=== PATIENT | male | born 1975 | race Caucasian/White ===

== ENCOUNTER → 2020-09-27 09:30 | Outpatient (BNVA) | payer MEDICARE, MEDICAID, SELFPAY | PROVIDERS: PCP Internal Medicine; Referring Provider Internal Medicine; Visit Provider Internal Medicine Endocrinology, Diabetes & Metabolism | DX: Z13.89 Encounter for screening for other disorder (principal) | CPT/HCPCS: Q3014 ==

== ENCOUNTER 2020-09-28 07:03 | Outpatient (REF) | payer MEDICARE, MEDICAID, SELFPAY ==
[2020-09-28 07:54] LABS: Estimated Average Glucose 197 mg/dL; Hemoglobin A1c % 8.5 %
[2020-09-28 07:56] LABS: Alanine Aminotransferase 33 U/L (0-40); Albumin Level 4.3 g/dL (3.5-5.0); Alkaline Phosphatase 74 U/L (39-117); Anion Gap 14 (12-20); Aspartate Amino Transferase 29 U/L (5-37); Bilirubin Total 0.9 mg/dL (0.0-1.0); Blood Urea Nitrogen 21 mg/dL (9-16); Calcium 8.9 mg/dL (8.4-10.2); Carbon Dioxide 30 mmol/L (22-29); Chloride 100 mmol/L (96-108); Cholesterol 177 mg/dL; Estimated Glomerular Filt Rate > 60; Glucose Fasting 148 mg/dL (60-99); HDL Cholesterol 49 mg/dL; LDL Cholesterol Calculated 105 mg/dl; Potassium 4.5 mmol/l (3.3-5.1); Sodium 139 mmol/L (135-145); Total Protein 7.1 g/dL (6.5-8.0); Triglycerides 115 mg/dL
[2020-09-28 08:17] LABS: Creatinine Urine 29.46 mg/dL; Free T4 (Free Thyroxine) 1.13 ng/dL (0.71-1.85); Microalbumin Urine < 5.0 mg/L; Thyroid Stimulating Hormone 2.16 uIU/mL (0.32-4.0); Vitamin D 25-OH Total 24.1 ng/mL (>30)
[2020-09-28 08:20] LABS: Vitamin B12 385 pg/mL (200-900)
[2020-09-29 10:17] LABS: LDL Cholesterol Direct 112 mg/dL (<100)
== END 2020-09-28 07:04 | disposition home or self-care (01) ==
LOC: HO.LAB 07:03
PROVIDERS: Visit Provider Internal Medicine Endocrinology, Diabetes & Metabolism
DX: E11.65 Type 2 diabetes mellitus with hyperglycemia (principal)
CPT/HCPCS: 36415; 80053; 80061; 82043; 82306; 82607; 83036; 83721; 84439; 84443

== ENCOUNTER → 2020-11-04 13:37 | Outpatient (BNVA) | payer MEDICARE, MEDICAID, SELFPAY | PROVIDERS: PCP Internal Medicine; Visit Provider Nurse Practitioner Gerontology | DX: E11.65 Type 2 diabetes mellitus with hyperglycemia (principal); E11.42 Type 2 diabetes mellitus with diabetic polyneuropathy; I10 Essential (primary) hypertension; E78.5 Hyperlipidemia, unspecified; E66.01 Morbid (severe) obesity due to excess calories | CPT/HCPCS: 82947; 99212 ==

== ENCOUNTER → 2020-11-18 13:11 | Outpatient (BNVA) | payer MEDICARE, MEDICAID, SELFPAY | PROVIDERS: PCP Internal Medicine; Visit Provider Dietitian, Registered ==

== ENCOUNTER 2021-01-25 03:25 | Emergency (ER) | payer MEDICARE, MEDICAID, SELFPAY ==
[2021-01-25 03:28] VITALS: BP 152/81; PULSE 68; RESP 18; TEMP 35.9; O2SAT 95; BMI 47.5
--- NOTE | 2021-01-25 03:55 | ED.SKABFB ---
HPI - Skin/Abscess/Foreign Bdy General Chief complaint: Skin/Abscess/Foreign Body Stated complaint: Foreign body in hand Time Seen by Provider: 01/25/21 03:49 Source: patient Mode of arrival: ambulatory Limitations: no limitations History of Present Illness HPI narrative: Patient comes to emergency room complaining of a splinter in his left hand on the palm. Patient tried taking it out at home but was unsuccessful. Patient states that the pain is gradually getting worse. Related Data Home Medications Medication Instructions Recorded Confirmed omeprazole 40 mg capsule,delayed mg PO 09/27/20 11/04/20 release clonazepam 0.5 mg tablet 0.5 mg PO BID tab 11/04/20 11/04/20 gabapentin 300 mg capsule 300 mg PO cap 11/04/20 11/04/20 levothyroxine 137 mcg tablet 137 mcg PO tab 11/04/20 11/04/20 paliperidone 9 mg tablet,extended 9 mg PO tab 11/04/20 11/04/20 release 24 hr terbinafine HCl 250 mg tablet 250 mg PO tab 11/04/20 11/04/20 valsartan 320 mg tablet 320 mg PO tab 11/04/20 11/04/20 Previous Rx's Medication Instructions Recorded dapagliflozin 10 mg-metformin ER 1 tab PO DAILY 30 Days #30 ea 08/19/20 1,000 mg tablet,extended release 24hr sitagliptin 100 mg tablet 100 mg PO DAILY #30 tab 08/20/20 atorvastatin 10 mg tablet 10 mg PO BEDTIME 30 Days #30 tab 10/02/20 insulin glargine 100 unit/mL (3 40 unit SUBCUT QPM 30 Days #12 ml 10/02/20 mL) subcutaneous pen pen needle, diabetic 32 gauge x #100 ea 11/04/20 Allergies Allergy/AdvReac Type Severity Reaction Status Date / Time ibuprofen [From MOTRIN] Allergy Unknown RECTAL Verified 01/25/21 03:28 BLEED topiramate [From TOPAMAX] Allergy Unknown RECTAL Verified 01/25/21 03:28 BLEED DAIRY PRODUCTS Allergy Unknown RECTAL Uncoded 11/04/20 15:59 BLEED AND SWELLING Wellbutrin Allergy Unknown unknown Uncoded 11/04/20 15:59 Review of Systems Review of Systems: Constitutional : No Weight loss, No Fever, No Chills, No Night Sweats, No Fatigue, No Malaise ENT/Mouth : No Hearing loss, No Ear Pain, No Nasal Congestion, No Sinus Pain, No Hoarseness, No sore throat, No Rhinorrhea, No Swallowing Difficulty Eyes: No Eye Pain, No Swelling, No Redness, No Foreign Body, No Discharge, No Vision Changes Cardiovascular : No Chest Pain, No SOB, No Dyspnea on Exertion, No Orthopnea, No Edema, No Palpitations Respiratory : No Cough, No Sputum, No Wheezing, No Smoke Exposure, No Dyspnea Gastrointestinal : No Nausea, No Vomiting, No Diarrhea, No Constipation, No abdominal Pain, No Hematochezia, No Melena Genitourinary : no irregular bleeding, No Dysuria, No Urinary Frequency, No Hematuria, No Urinary Incontinence, No Urgency, No Flank Pain, No Urinary Flow Changes, No Hesitancy Musculoskeletal : No joint pain, No Myalgias, No Joint Swelling Skin : Complaining of a splinter in his phone which hurts Neuro : No Weakness, No Numbness, No Paresthesias, No Loss of Consciousness, No Dizziness, No Headache Psych : No Anxiety/Panic, No Depression, No SI/HI/AH/VH, No Social Issues, Heme/Lymph: No Bruising, No Bleeding,No Lymphadenopathy Endocrine : No Polyuria, No Polydipsia, No Temperature Intolerance PMFSH Past Medical History Medical History Diabetes type 2, uncontrolled Diabetic polyneuropathy associated with type 2 diabetes mellitus Dyslipidemia GERD (gastroesophageal reflux disease) 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 Morbid obesity PTSD (post-traumatic stress disorder) Schizoaffective disorder Vitamin D deficiency Surgical History Hx of hand surgery Hx of wisdom tooth extraction Family History Family History (Updated 09/27/20 @ 10:03 by Roberta Sher LPN) Father Cancer Mother Cancer Diabetes Social History Social History (Updated 11/04/20 @ 13:58 by DEVIN Rivera) Household Members: None Smoking Status: Never smoker Physical Exam Vital Signs: Vital Signs: Last Vital Signs Temp 96.6 F L 01/25/21 03:28 Pulse 68 01/25/21 03:28 Resp 18 01/25/21 03:28 BP 152/81 H 01/25/21 03:28 Pulse Ox 95 01/25/21 03:28 Body Mass Index 47.5 Appearance: Alert. Oriented X3. No acute distress. Eyes: Pupils equal, round and reactive to light. ENT: Pharynx normal. Neck: Normal inspection. Neck supple. No lymph nodes noted. No crepitus CVS: Normal heart rate and rhythm. Pulses normal. Normal S1 and S2 Respiratory: No respiratory distress. Breath sounds normal. No Wheezing. No rales Abdomen: Soft and nontender. No rigidity. No distention. good BS x4 Skin: Skin warm and dry. Palm of left hand, 3 mm x 3 mm erythematous bump, tender to touch, no surrounding cellulitis Extremities: No lower extremity edema. No lower extremity edema. No Lacerations. No Rash Neuro: Oriented X 3. No motor deficit. No sensory deficit. Moving all extermities. No slurred speech. Course Course Course Narrative: The affected area on the palm was numbed with 0.5 mL of 2% lidocaine, at 3 mm incision was made, with tweezers I was able to extract the splinter which was approximately 4 mm long. Patient tolerated well the procedure, patient is able to flex and extend all fingers in his hand. No signs of infection. Discharge Plan Discharge Clinical Impression: Splinter in skin Patient Disposition: Home, Self-Care Instructions: Soft Tissue Foreign Body (ED) Additional Instructions: Please follow-up with your primary care physician tomorrow. If you have any worsening or new symptoms, please return to the emergency room or call 911 Prescriptions: No Action Xigduo XR 10-1,000 mg tablet, IR - ER, biphasic 24hr 1 tab PO DAILY 30 Days Qty: 30 RF: 5 sitagliptin [Januvia] 100 mg tablet 100 mg PO DAILY Qty: 30 RF: 11 insulin glargine 100 unit/mL (3 mL) insulin pen 40 unit subcut QPM 30 Days Qty: 12 RF: 6 atorvastatin 10 mg tablet 10 mg PO BEDTIME 30 Days Qty: 30 RF: 5 (DME) pen needle, diabetic [BD Ultra-Fine Soco Pen Needle] 32 gauge x 5/32 needle See Rx Instructions .ROUTE .MEDSUPPLY Qty: 100 RF: 3 omeprazole 40 mg capsule,delayed release(DR/EC) PO RF: 0 clonazepam 0.5 mg tablet 0.5 mg PO BID RF: 0 gabapentin 300 mg capsule 300 mg PO RF: 0 levothyroxine 137 mcg tablet 137 mcg PO RF: 0 paliperidone 9 mg tablet extended release 24hr 9 mg PO RF: 0 terbinafine HCl 250 mg tablet 250 mg PO RF: 0 valsartan 320 mg tablet 320 mg PO RF: 0
== END 2021-01-25 04:26 | disposition home or self-care (01) ==
LOC: HO.ED 04:20
PROVIDERS: Emergency Provider Emergency Medicine; PCP Internal Medicine
DX: S61.442A Puncture wound with foreign body of left hand, initial encounter (principal); W45.8XXA Other foreign body or object entering through skin, initial encounter; Y93.9 Activity, unspecified; Y92.9 Unspecified place or not applicable; Y99.9 Unspecified external cause status
CPT/HCPCS: 10120; 99283; 99284

== ENCOUNTER → 2021-02-28 13:44 | Outpatient (BNVA) | payer MEDICARE, MEDICAID, SELFPAY | PROVIDERS: PCP Internal Medicine; Visit Provider Internal Medicine Endocrinology, Diabetes & Metabolism | DX: E11.65 Type 2 diabetes mellitus with hyperglycemia (principal); E11.42 Type 2 diabetes mellitus with diabetic polyneuropathy; E55.9 Vitamin D deficiency, unspecified; E66.01 Morbid (severe) obesity due to excess calories; E78.5 Hyperlipidemia, unspecified; I10 Essential (primary) hypertension; Z79.4 Long term (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 | CPT/HCPCS: 82947; 99212 ==

== ENCOUNTER 2021-03-01 07:00 | Outpatient (REF) | payer MEDICARE, MEDICAID, SELFPAY ==
[2021-03-01 08:06] LABS: Creatinine Urine 42.06 mg/dL; Microalbumin Urine < 5.0 mg/L
[2021-03-01 08:45] LABS: Alanine Aminotransferase 34 U/L (0-40); Albumin Level 4.3 g/dL (3.5-5.0); Alkaline Phosphatase 86 U/L (39-117); Anion Gap 14 (12-20); Aspartate Amino Transferase 26 U/L (5-37); Bilirubin Total 0.7 mg/dL (0.0-1.0); Blood Urea Nitrogen 22 mg/dL (9-16); Calcium 9.1 mg/dL (8.4-10.2); Carbon Dioxide 29 mmol/L (22-29); Chloride 101 mmol/L (96-108); Cholesterol 146 mg/dL; Estimated Glomerular Filt Rate > 60; Glucose Fasting 228 mg/dL (60-99); HDL Cholesterol 48 mg/dL; LDL Cholesterol Calculated 63 mg/dl; Potassium 4.6 mmol/L (3.3-5.1); Sodium 139 mmol/L (135-145); Total Protein 6.9 g/dL (6.5-8.0); Triglycerides 176 mg/dL
[2021-03-01 09:03] LABS: Vitamin D 25-OH Total 26.9 ng/mL (>30)
[2021-03-02 07:46] LABS: LDL Cholesterol Direct 66 mg/dL (<100)
== END 2021-03-01 07:01 | disposition home or self-care (01) ==
LOC: HO.LAB 07:00
PROVIDERS: PCP Internal Medicine; Visit Provider Internal Medicine Endocrinology, Diabetes & Metabolism
DX: E11.65 Type 2 diabetes mellitus with hyperglycemia (principal)
CPT/HCPCS: 36415; 80053; 80061; 82043; 82306; 83721; 84681

== ENCOUNTER → 2021-06-03 13:28 | Outpatient (BNVA) | payer MEDICARE, MEDICAID, SELFPAY | PROVIDERS: PCP Internal Medicine; Visit Provider Nurse Practitioner Gerontology | DX: E11.65 Type 2 diabetes mellitus with hyperglycemia (principal); E11.42 Type 2 diabetes mellitus with diabetic polyneuropathy; E55.9 Vitamin D deficiency, unspecified; E66.01 Morbid (severe) obesity due to excess calories; E78.5 Hyperlipidemia, unspecified; I10 Essential (primary) hypertension; Z79.4 Long term (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 | CPT/HCPCS: 82947; 83036; 99212 ==

== ENCOUNTER → 2021-07-08 12:29 | Outpatient (BNVA) | payer MEDICARE, MEDICAID, SELFPAY | PROVIDERS: PCP Internal Medicine; Visit Provider Dietitian, Registered | DX: E11.65 Type 2 diabetes mellitus with hyperglycemia (principal) | CPT/HCPCS: 97803 ==

== ENCOUNTER → 2021-07-14 14:22 | Outpatient (BNVA) | payer MEDICARE, MEDICAID, SELFPAY | PROVIDERS: PCP Internal Medicine; Visit Provider Registered Nurse Diabetes Educator | DX: E11.65 Type 2 diabetes mellitus with hyperglycemia (principal) | CPT/HCPCS: Q3014 ==

== ENCOUNTER → 2021-08-18 13:15 | Outpatient (BNVA) | payer MEDICARE, MEDICAID, SELFPAY | PROVIDERS: PCP Internal Medicine; Visit Provider Registered Nurse Diabetes Educator | DX: E11.65 Type 2 diabetes mellitus with hyperglycemia (principal); Z79.4 Long term (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 | CPT/HCPCS: 99211 ==

== ENCOUNTER → 2021-10-07 13:48 | Outpatient (BNVA) | payer MEDICARE, MEDICAID, SELFPAY | PROVIDERS: PCP Internal Medicine; Visit Provider Nurse Practitioner Gerontology | DX: E11.65 Type 2 diabetes mellitus with hyperglycemia (principal); E11.42 Type 2 diabetes mellitus with diabetic polyneuropathy; E78.5 Hyperlipidemia, unspecified; I10 Essential (primary) hypertension; E55.9 Vitamin D deficiency, unspecified; E66.01 Morbid (severe) obesity due to excess calories; Z79.4 Long term (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; Z68.42 Body mass index [BMI] 45.0-49.9, adult | CPT/HCPCS: 82947; 83036; 99212 ==

== ENCOUNTER → 2021-12-04 13:33 | Outpatient (BNVA) | payer MEDICARE, MEDICAID, SELFPAY | PROVIDERS: PCP Internal Medicine; Visit Provider Nurse Practitioner Gerontology | DX: E11.65 Type 2 diabetes mellitus with hyperglycemia (principal); E11.42 Type 2 diabetes mellitus with diabetic polyneuropathy; E78.5 Hyperlipidemia, unspecified; I10 Essential (primary) hypertension; E66.01 Morbid (severe) obesity due to excess calories; Z68.42 Body mass index [BMI] 45.0-49.9, adult; E55.9 Vitamin D deficiency, unspecified; Z79.4 Long term (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 | CPT/HCPCS: 82947; 99212 ==

== ENCOUNTER → 2021-12-05 12:12 | Outpatient (BNVA) | payer MEDICARE, MEDICAID, SELFPAY | PROVIDERS: PCP Internal Medicine; Visit Provider Registered Nurse Diabetes Educator | DX: E11.65 Type 2 diabetes mellitus with hyperglycemia (principal); E11.42 Type 2 diabetes mellitus with diabetic polyneuropathy; Z79.4 Long term (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 | CPT/HCPCS: 99211 ==

== ENCOUNTER → 2021-12-17 14:20 | Outpatient (BNVA) | payer MEDICARE, MEDICAID, SELFPAY | PROVIDERS: PCP Internal Medicine; Visit Provider Registered Nurse Diabetes Educator | DX: E11.42 Type 2 diabetes mellitus with diabetic polyneuropathy (principal) | CPT/HCPCS: 99211 ==

== ENCOUNTER → 2021-12-30 07:33 | Outpatient (BNVA) | payer MEDICARE, MEDICAID, SELFPAY | PROVIDERS: PCP Internal Medicine; Visit Provider Registered Nurse Diabetes Educator | DX: E11.65 Type 2 diabetes mellitus with hyperglycemia (principal); E11.42 Type 2 diabetes mellitus with diabetic polyneuropathy; Z79.4 Long term (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 | CPT/HCPCS: 99211 ==

== ENCOUNTER → 2022-03-05 13:54 | Outpatient (BNVA) | payer MEDICARE, MEDICAID, SELFPAY | PROVIDERS: PCP Internal Medicine; Visit Provider Nurse Practitioner Gerontology | DX: E11.65 Type 2 diabetes mellitus with hyperglycemia (principal); E11.42 Type 2 diabetes mellitus with diabetic polyneuropathy; E78.5 Hyperlipidemia, unspecified; E66.01 Morbid (severe) obesity due to excess calories; E55.9 Vitamin D deficiency, unspecified; I10 Essential (primary) hypertension; Z79.4 Long term (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; Z68.42 Body mass index [BMI] 45.0-49.9, adult | CPT/HCPCS: 82947; 83036; 99212 ==

== ENCOUNTER → 2022-03-19 14:29 | Outpatient (BNVA) | payer MEDICARE, MEDICAID, SELFPAY | PROVIDERS: PCP Internal Medicine; Visit Provider Registered Nurse Diabetes Educator | DX: E11.65 Type 2 diabetes mellitus with hyperglycemia (principal) | CPT/HCPCS: 99211 ==

== ENCOUNTER → 2022-04-15 09:42 | Outpatient (BNVA) | payer MEDICARE, MEDICAID, SELFPAY | PROVIDERS: PCP Internal Medicine; Visit Provider Registered Nurse Diabetes Educator | DX: E11.65 Type 2 diabetes mellitus with hyperglycemia (principal) | CPT/HCPCS: 99211 ==

== ENCOUNTER → 2022-05-19 14:47 | Outpatient (BNVA) | payer MEDICARE, MEDICAID, SELFPAY | PROVIDERS: PCP Internal Medicine; Visit Provider Registered Nurse Diabetes Educator | DX: E11.65 Type 2 diabetes mellitus with hyperglycemia (principal) | CPT/HCPCS: 99211 ==

== ENCOUNTER → 2022-07-02 14:40 | Outpatient (BNVA) | payer MEDICARE, MEDICAID, SELFPAY | PROVIDERS: PCP Internal Medicine; Visit Provider Registered Nurse Diabetes Educator | DX: E11.65 Type 2 diabetes mellitus with hyperglycemia (principal) | CPT/HCPCS: 99211 ==

== ENCOUNTER → 2023-02-26 07:48 | Outpatient (BNVA) | payer MEDICARE, MEDICAID, SELFPAY | PROVIDERS: PCP Internal Medicine; Visit Provider Registered Nurse Diabetes Educator | DX: E11.65 Type 2 diabetes mellitus with hyperglycemia (principal) | CPT/HCPCS: 99211 ==

== ENCOUNTER → 2023-03-10 13:44 | Outpatient (BNVA) | payer MEDICARE, MEDICAID, SELFPAY | PROVIDERS: PCP Internal Medicine; Visit Provider Registered Nurse Diabetes Educator | DX: E11.65 Type 2 diabetes mellitus with hyperglycemia (principal) | CPT/HCPCS: 99211 ==

== ENCOUNTER 2024-07-20 14:41 | Outpatient (AMB) | payer MEDICARE, MEDICAID, SELFPAY ==
--- NOTE | 2024-07-20 15:14 | A.OFFVIS_ITS ---
Intake Intake Visit Reasons: DM-lvm Medical Information Officer Required: No Accompanied by: Self / Same As Patient Allergies ibuprofen [From MOTRIN] Allergy (Unknown, Verified 03/05/22 14:13) RECTAL BLEED topiramate [From TOPAMAX] Allergy (Unknown, Verified 03/05/22 14:13) RECTAL BLEED DAIRY PRODUCTS Allergy (Unknown, Uncoded 03/05/22 14:13) RECTAL BLEED AND SWELLING Wellbutrin Allergy (Unknown, Uncoded 03/05/22 14:13) unknown HPI Comprehensive Diabetes Asmnt Most Recent Diabetes Results: Microalb/Creat Ratio TNP 03/01/21 Cholesterol 146 mg/dL 03/01/21 HDL Cholesterol 48 mg/dL 03/01/21 Triglycerides 176 mg/dL 03/01/21 Creatinine 1.15 mg/dL (0.5-1.4) 03/01/21 Blood Urea Nitrogen 22 mg/dL (9-16) H 03/01/21 Sodium 139 mmol/L (135-145) 03/01/21 Potassium 4.6 mmol/L (3.3-5.1) 03/01/21 Chloride 101 mmol/L (96-108) 03/01/21 Carbon Dioxide 29 mmol/L (22-29) 03/01/21 Calcium 9.1 mg/dL (8.4-10.2) 03/01/21 AST 26 U/L (5-37) 03/01/21 ALT 34 U/L (0-40) 03/01/21 Total Protein 6.9 g/dL (6.5-8.0) 03/01/21 Albumin 4.3 g/dL (3.5-5.0) 03/01/21 [facility] Medical History Diabetes type 2, uncontrolled Diabetic polyneuropathy associated with type 2 diabetes mellitus Dyslipidemia GERD (gastroesophageal reflux disease) Hypertension 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 Morbid obesity PTSD (post-traumatic stress disorder) Schizoaffective disorder Vitamin D deficiency Surgical History Hx of hand surgery Hx of wisdom tooth extraction Family History Father Cancer Mother Cancer Diabetes Social History Household Members: None Alcohol intake: former Patient Tobacco Use Status: Never used Tobacco Second Hand Smoke Exposure: Yes Assessment & Plan Assessment & Plan (1) Diabetes type 2, uncontrolled: Code(s): E11.65 - Type 2 diabetes mellitus with hyperglycemia Qualifiers: Glycemic state: with hyperglycemia Qualified Code(s): E11.65 - Type 2 diabetes mellitus with hyperglycemia Plan: Personal Continuous Glucose Monitor: Patients CGM information reviewed, Pt uses Aline 3 sensor Sensor data: Hyperglycemia:? 26% Time in Range:?74% Hypoglycemia: 0% Average glucose for the last 2 weeks?159 mg/dL Patient reports he is here to reestablish care, was last seen by SEAT COVER INSTALLER in [address] [facility] Reports that he is taking NovoLog before meals, if glucose is less than 200 mg/dL he takes 10 units, if it is greater than 200 mg/dL he takes 12 Lantus 38 units daily Xugduo XR 06/1000 daily Ozempic 2 mg weekly Patient reports he left his job at [employer] at the beginning of June. Since leaving his job he reports that he is cooking at home much more frequently, eating healthier meals and feeling less stress. Stated his last A1c was in the high 8% range. He is eager to come back to the endocrine clinic because he feels that the providers here can give him the support he needs to get better control of his glucose number Patient able to insert sensor independently at home without issue.? Portions of this note were created using voice recognition software, please excuse any words or phrases that may have been misinterpreted. Patient Instructions: Patient instruction: CGM provides information on blood glucose control throughout the day, including hyperglycemia and hypoglycemia. ? Continue to monitor blood glucose as instructed. Follow nutrition guidelines provided. Report any discomfort promptly to health care provider. ?Stay well-hydrated. You can bathe ,shower, swim and exerce while wearing the glucose sensor. Do not submerge glucose sensor in water for more than 30 minutes. Remove sensor for MRI or CAT scan. Avoid Xray machine in airports - remove sensor or request wand Patient will make appointment with Endocrine SE[facility] COVER INSTALLER, follow-up hospice educator 1 month after that appointment Coding Level of Care Code Est Pt Level 1 (51419) Diagnoses Uncontrolled type 2 diabetes mellitus with hyperglycemia E11.65 Glycemic state: with hyperglycemia
== END 2024-07-20 15:19 | disposition home or self-care (01) ==
LOC: HO.ENCR 14:41
PROVIDERS: PCP Internal Medicine; Visit Provider Registered Nurse Diabetes Educator
DX: E11.65 Type 2 diabetes mellitus with hyperglycemia (principal)

== ENCOUNTER → 2024-07-20 14:41 | Outpatient (BNVA) | payer OTHER, SELFPAY | PROVIDERS: PCP Internal Medicine; Visit Provider Registered Nurse Diabetes Educator | DX: E11.65 Type 2 diabetes mellitus with hyperglycemia (principal) | CPT/HCPCS: 99211 ==

== ENCOUNTER 2024-07-31 10:08 | Outpatient (AMB) | payer MEDICARE, MEDICAID, SELFPAY ==
--- NOTE | 2024-07-31 10:29 | A.OFFVIS_ITS ---
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5-1.4) 03/01/21 Blood Urea Nitrogen 22 mg/dL (9-16) H 03/01/21 Sodium 139 mmol/L (135-145) 03/01/21 Potassium 4.6 mmol/L (3.3-5.1) 03/01/21 Chloride 101 mmol/L (96-108) 03/01/21 Carbon Dioxide 29 mmol/L (22-29) 03/01/21 Calcium 9.1 mg/dL (8.4-10.2) 03/01/21 AST 26 U/L (5-37) 03/01/21 ALT 34 U/L (0-40) 03/01/21 Total Protein 6.9 g/dL (6.5-8.0) 03/01/21 Albumin 4.3 g/dL (3.5-5.0) 03/01/21 PFSH Medical History Diabetes type 2, uncontrolled Diabetic polyneuropathy associated with type 2 diabetes mellitus Dyslipidemia GERD (gastroesophageal reflux disease) Hypertension assisted (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 Morbid obesity PTSD (post-traumatic stress disorder) Schizoaffective disorder Vitamin D deficiency Surgical History Hx of hand surgery Hx of wisdom tooth extraction Family History Father Cancer Mother Cancer Diabetes Social History Household Members: None Alcohol intake: former Patient Tobacco Use Status: Never used Tobacco Second Hand Smoke Exposure: Yes Assessment & Plan Assessment & Plan (1) Diabetes type 2, uncontrolled: Code(s): E11.65 - Type 2 diabetes mellitus with hyperglycemia Qualifiers: Glycemic state: with hyperglycemia Qualified Code(s): E11.65 - Type 2 diabetes mellitus with hyperglycemia Plan: Patient at visit to set up an insert Aline 3 sensor and Aline 3 rikki Instructed patient sensors water proof you can shower, or swim do not submerge sensor in water for over 30 minutes Is sensor falls off cannot put back in you need to replace sensor, customer service number given to patient for sensor replacement Sensor placed on the Back of Right arm Patient left visit with sensor in warmup Reviewed how to interpret trend arrows Reminded patient that to check finger sticks if symptoms do not match sensor reading. Discussed lag time between finger stick and sensor data.? Instructed patient she should always keep blood glucometer for backup testing if needed Reviewed delay of CGM from fingersticks Reminded pt that if symptoms do not match sensor still needs to check fingersticks. Portions of this note were created using voice recognition software, please excuse any words or phrases that may have been misinterpreted. Patient Instructions: Patient instruction: CGM provides information on blood glucose control throughout the day, including hyperglycemia and hypoglycemia. ? Continue to monitor blood glucose as instructed. Follow nutrition guidelines provided. Report any discomfort promptly to health care provider. ?Stay well-hydrated. You can bathe ,shower, swim and exercise while wearing the glucose sensor. Do not submerge glucose sensor in water for more than 30 minutes. Coding Level of Care Code Est Pt Level 1 (09435) Diagnoses Uncontrolled type 2 diabetes mellitus with hyperglycemia E11.65 Glycemic state: with hyperglycemia
== END 2024-07-31 11:55 | disposition home or self-care (01) ==
PROVIDERS: PCP Internal Medicine; Visit Provider Registered Nurse Diabetes Educator
DX: E11.65 Type 2 diabetes mellitus with hyperglycemia (principal)

== ENCOUNTER → 2024-07-31 10:08 | Outpatient (BNVA) | payer OTHER, SELFPAY | PROVIDERS: PCP Internal Medicine; Visit Provider Registered Nurse Diabetes Educator | DX: E11.65 Type 2 diabetes mellitus with hyperglycemia (principal); E11.42 Type 2 diabetes mellitus with diabetic polyneuropathy; Z79.4 Long term (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 | CPT/HCPCS: 99211 ==

== ENCOUNTER 2024-08-02 13:56 | Outpatient (AMB) | payer MEDICARE, MEDICAID, SELFPAY ==
--- NOTE | 2024-08-02 14:05 | MHC.OFFVIS ---
Vital Signs 08/02/24 14:10 Height 6 ft 2 in Weight 360 lb 14.347 oz BMI 46.3 BP 132/74 Blood Pressure Location Lt brachial Position Sitting Pulse 84 Pulse Source Pulse Oximeter Intake Visit Reasons: DM Intake Note: Patient present today for Diabetes Mellitus management, last seen by Isabel Pimentel on 02/2022. Last Diabetic Eye exam: Within the year, has yearly exam Last Podiatry Visit: Does not see a Aquatics Lifeguard, requesting referral. Random Glucose: 108 mg/dl HgA1C: 8.0% 08/02/2024 Requested by Provider Qa Reviewer Required: No Accompanied by: Self / Same As Patient Allergies ibuprofen [From MOTRIN] Allergy (Unknown, Verified 08/02/24 14:12) RECTAL BLEED topiramate [From TOPAMAX] Allergy (Unknown, Verified 08/02/24 14:12) RECTAL BLEED DAIRY PRODUCTS Allergy (Unknown, Uncoded 08/02/24 14:12) RECTAL BLEED AND SWELLING Wellbutrin Allergy (Unknown, Uncoded 08/02/24 14:12) unknown HPI Comments Details: Patient is 49yo with DM type 2 diagnosed 2017 who presents for management of diabetes patient last saw Danyelle Pimentel NP on 03/05/2022 Past medical history: Obesity, depression, PTSD, hypothyroidism, GERD. Micro and macrovascular complications: neuropathy, Diabetes medications: Xigduo 06/1000 mg XR daily. Lantus 38 units at bedtime.Ozempic 2 mg Qwkly Novolog 10 units with meals, + 2 units for bg over 200 (reports sometimes takes 10 units) He didn't tolerate Trulicity 0.75 mg weekly, and Victoza daily due to diarrhea Blood glucose monitoring: .; Aline download shows he is using the sensor 15% of the time. Average glucose is 154 with variability of 25.7%. 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 Has started to go for walks. Last ophthalmology evaluation: Summer 2023 Laboratory Tests 10/07/21 14:21 Hgb A1c (Clinic) 8.4 H 09/28/20 02/28/21 03/01/21 07:10 14:29 07:05 Creatinine 1.15 Estimated GFR > 60 Hgb A1c (Clinic) 11.4 H C-Peptide AST 26 ALT 34 Alkaline Phosphatase 86 Triglycerides 176 Cholesterol 146 LDL Cholesterol Direct LDL Cholesterol, Calc 63 HDL Cholesterol 48 25-OH Vitamin D Total 26.9 TSH 2.16 Microalb/Creat Ratio 03/01/21 03/01/21 07:05 07:05 Creatinine Estimated GFR Hgb A1c (Clinic) C-Peptide 1.10 AST ALT Alkaline Phosphatase Triglycerides Cholesterol LDL Cholesterol Direct 66 LDL Cholesterol, Calc HDL Cholesterol 25-OH Vitamin D Total TSH Microalb/Creat Ratio TNP . 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 Absence of acromegalic features. Neck exam reveals nl size thyroid about 15 gms. No thyroid nodules palpable. No carotid bruits present. Lungs CTA. Heart S1 S2, Reg R/R. No M/R/ G. Skin exam reveals absence of vitiligo or acanthosis nigricans. Abdominal exam reveals Soft NT/ND with NA BS. No organomegaly present. Neck Other: . Extrem Other: Visual exam of foot performed. No ulcerations or open lesions. No onchomycosis, no callouses.Pulses 2 + distally Sensation intact to monofilament exam. Vibratory sensation sensed is i decreased with 128 Hz tuning fork Results AMB Hemoglobin A1c AMB Hemoglobin A1c 8.0 % Last Edit by DEVIN Meeks on 08/02/24 14:36 Results Reviewed Results Reviewed: Laboratory Last Values Glucose (Clinic) 108 mg/dL (60-115) 08/02/24 14:24 Assessment & Plan Assessment & Plan (1) Diabetes type 2, uncontrolled: Code(s): E11.65 - Type 2 diabetes mellitus with hyperglycemia Category: Medical Qualifiers: Glycemic state: with hyperglycemia Qualified Code(s): E11.65 - Type 2 diabetes mellitus with hyperglycemia Plan: This is a 49-year-old white male with a history of type 2 diabetes being treated with metformin, Farxiga and basal-bolus insulin with glycemic control and known microvascular complications namely neuropathy. Plan is that the patient skin with the sensor more frequently. We will change the Ozempic to Mounjaro 2.5 mg Q weekly. Will titrate as tolerated. Went over side effects of Mounjaro included but not limited to nausea, vomiting rare risk of pancreatitis. Told patient not to take Januvia with Mounjaro.. Will check lipid profile microalbumin to creatinine ratio. We will have patient follow up with the primary care diabetes team as well as breastfeeding educator and told patient report any hypoglycemia for adjustment of insulin regimen Orders: Orders Microalbumin, Random (w Creat) Today E11.65 - Type 2 diabetes mellitus with hyperglycemia Basic Metabolic Panel Today E11.65 - Type 2 diabetes mellitus with hyperglycemia Lipid Panel Today E11.65 - Type 2 diabetes mellitus with hyperglycemia AMB Hemoglobin A1c Today E11.65 - Type 2 diabetes mellitus with hyperglycemia Referrals Nutrition/Dietitian Referral E11.65 - Type 2 diabetes mellitus with hyperglycemia Medications: New tirzepatide (Mounjaro) for 4 weeks 2.5 mg (0.5 mL) subcut QWEEK 2 mL 5RF Discontinued sitagliptin phosphate (Januvia) Discontinued Reason: Doctor's Order 100 mg PO DAILY 30 days 30 tabs 6RF E11.65 - Type 2 diabetes mellitus with hyperglycemia Coding Level of Care Code Est Pt Level 4 (55211) Diagnoses Uncontrolled type 2 diabetes mellitus with hyperglycemia E11.65 Glycemic state: with hyperglycemia
[2024-08-02 14:10] VITALS: BP 132/74; PULSE 84; BMI 46.3
[2024-08-02 14:29] LABS: Glucose, Whole Blood 108 mg/dL (60-115)
== END 2024-08-02 15:02 | disposition home or self-care (01) ==
PROVIDERS: PCP Internal Medicine; Visit Provider Internal Medicine Endocrinology, Diabetes & Metabolism
DX: E11.65 Type 2 diabetes mellitus with hyperglycemia (principal)
CPT/HCPCS: 99214

== ENCOUNTER → 2024-08-02 13:56 | Outpatient (BNVA) | payer OTHER, SELFPAY | PROVIDERS: PCP Internal Medicine; Visit Provider Internal Medicine Endocrinology, Diabetes & Metabolism | DX: E11.65 Type 2 diabetes mellitus with hyperglycemia (principal); E11.40 Type 2 diabetes mellitus with diabetic neuropathy, unspecified; Z79.4 Long term (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; Z79.84 Long term (current) use of oral hypoglycemic drugs | CPT/HCPCS: 82947; 83036; 99212 ==

== ENCOUNTER 2024-08-16 06:58 | Outpatient (AMB) | payer OTHER, MEDICAID, SELFPAY ==
--- NOTE | 2024-08-16 07:20 | MHC.AMDMED ---
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 Required: No Accompanied by: Self / Same As Patient Allergies ibuprofen [From MOTRIN] Allergy (Unknown, Verified 08/02/24 14:12) RECTAL BLEED topiramate [From TOPAMAX] Allergy (Unknown, Verified 08/02/24 14:12) RECTAL BLEED DAIRY PRODUCTS Allergy (Unknown, Uncoded 08/02/24 14:12) RECTAL BLEED AND SWELLING Wellbutrin Allergy (Unknown, Uncoded 08/02/24 14:12) unknown HPI Comprehensive Diabetes Asmnt Most Recent Diabetes Results: Microalb/Creat Ratio TNP 03/01/21 Cholesterol 146 mg/dL 03/01/21 HDL Cholesterol 48 mg/dL 03/01/21 Triglycerides 176 mg/dL 03/01/21 Creatinine 1.15 mg/dL (0.5-1.4) 03/01/21 Blood Urea Nitrogen 22 mg/dL (9-16) H 03/01/21 Sodium 139 mmol/L (135-145) 03/01/21 Potassium 4.6 mmol/L (3.3-5.1) 03/01/21 Chloride 101 mmol/L (96-108) 03/01/21 Carbon Dioxide 29 mmol/L (22-29) 03/01/21 Calcium 9.1 mg/dL (8.4-10.2) 03/01/21 AST 26 U/L (5-37) 03/01/21 ALT 34 U/L (0-40) 03/01/21 Total Protein 6.9 g/dL (6.5-8.0) 03/01/21 Albumin 4.3 g/dL (3.5-5.0) 03/01/21 [facility] Medical History GERD (gastroesophageal reflux disease) Schizoaffective disorder PTSD (post-traumatic stress disorder) Diabetic polyneuropathy associated with type 2 diabetes mellitus Hypertension Dyslipidemia Morbid obesity Vitamin D deficiency 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 Diabetes type 2, uncontrolled Surgical History Hx of knee surgery Hx of wisdom tooth extraction Hx of hand surgery Family History Father Cancer Mother Cancer Diabetes Social History Household Members: None Alcohol intake: former Patient Tobacco Use Status: Never used Tobacco Second Hand Smoke Exposure: Yes Assessment & Plan Assessment & Plan (1) Diabetes type 2, uncontrolled: Code(s): E11.65 - Type 2 diabetes mellitus with hyperglycemia Qualifiers: Glycemic state: with hyperglycemia Qualified Code(s): E11.65 - Type 2 diabetes mellitus with hyperglycemia Plan: Patient at visit to set up an insert and setup Aline 3 sensor and rikki setup Instructed patient sensors water proof you can shower, or swim do not submerge sensor in water for over 30 minutes Is sensor falls off cannot put back in you need to replace sensor, customer service number given to patient for sensor replacement Sensor placed on the back of Left arm Patient left visit with sensor in warmup Pt started on Mounjaro 2.5 mg 08/02/24 Pt average glucose for the past 14 days 153 mg/dL Above target 21% At target 79% Below target 0% Reviewed how to interpret trend arrows Reminded patient that to check finger sticks if symptoms do not match sensor reading. Discussed lag time between finger stick and sensor data.? Instructed patient she should always keep blood glucometer for backup testing if needed Reviewed delay of CGM from fingersticks Reminded pt that if symptoms do not match sensor still needs to check fingersticks. Portions of this note were created using voice recognition software, please excuse any words or phrases that may have been misinterpreted. Coding Level of Care Code Est Pt Level 1 (00671) Diagnoses Uncontrolled type 2 diabetes mellitus with hyperglycemia E11.65 Glycemic state: with hyperglycemia
== END 2024-08-16 07:22 | disposition home or self-care (01) ==
PROVIDERS: PCP Internal Medicine; Visit Provider Registered Nurse Diabetes Educator
DX: E11.65 Type 2 diabetes mellitus with hyperglycemia (principal)

== ENCOUNTER → 2024-08-16 06:58 | Outpatient (BNVA) | payer OTHER, MEDICAID, SELFPAY | PROVIDERS: PCP Internal Medicine; Visit Provider Registered Nurse Diabetes Educator | DX: E11.65 Type 2 diabetes mellitus with hyperglycemia (principal) | CPT/HCPCS: 99211 ==

== ENCOUNTER 2024-08-30 13:40 | Outpatient (AMB) | payer OTHER, MEDICAID, SELFPAY ==
--- NOTE | 2024-08-30 13:42 | A.OFFVIS_ITS ---
Vital Signs 08/30/24 13:47 Height 6 ft 2 in Weight 368 lb 2.751 oz BMI 47.3 BP 130/80 Blood Pressure Location Rt brachial Position Sitting Pulse 64 Pulse Source Pulse Oximeter Intake Visit Reasons: DM/Confirmed Intake Note: Patient present today for Diabetes Mellitus Management Last Diabetic Eye exam: Within the year, has yearly exam Last Podiatry Visit: Does not see a [place] Planning Manager, requesting referral. Most Recent HgA1C: 8.0% 08/02/2024 Random Glucose: 195 mg/dL, Today Electro Mechanical Designer Required: No Accompanied by: Self / Same As Patient Allergies ibuprofen [From MOTRIN] Allergy (Unknown, Verified 08/30/24 13:43) RECTAL BLEED topiramate [From TOPAMAX] Allergy (Unknown, Verified 08/30/24 13:43) RECTAL BLEED DAIRY PRODUCTS Allergy (Unknown, Uncoded 08/30/24 13:43) RECTAL BLEED AND SWELLING Wellbutrin Allergy (Unknown, Uncoded 08/30/24 13:43) unknown HPI Comments Details: Patient is 49yo with DM type 2 diagnosed 2017 who presents for follow up diabetes Past medical history: Obesity, depression, PTSD, hypothyroidism, GERD, neuropathy Diabetes medications: Xigduo 06/1000 mg XR daily. Lantus 38 units at bedtime, mounjaro 2.5mg weekly (has taken four weeks), Novolog <150 0 units, sliding scale. He didn't tolerate Trulicity 0.75 mg weekly, and Victoza daily due to diarrhea. He feels great on the Mounjaro has never felt so good on a medication. 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 Last ophthalmology evaluation: Summer 2023 Family hx of mother and maternal grandparents Type 2 DM ROS CONSTITUTIONAL: Denies weight loss, fever and chills. HEENT: Denies changes in vision and hearing. RESPIRATORY: Denies SOB and cough. CV: Denies palpitations and CP GI: Denies abdominal pain, nausea, vomiting and diarrhea. : Denies dysuria and urinary frequency. MSK: Denies new myalgia and joint pain. SKIN: Denies rash and pruritus. NEUROLOGICAL: Denies headache PSYCHIATRIC: Denies recent changes in mood. PHYSICAL EXAM: GENERAL: Alert and oriented x 3. NAD EYES: EOMI. Anicteric. HENT: Moist mucous membranes. No scleral icterus. No cervical lymphadenopathy. LUNGS: Clear to auscultation bilaterally. CARDIOVASCULAR: Regular rate and rhythm. No murmur. No JVD. ABDOMEN: Soft, non-tender +bs EXTREMITIES: No edema. Non-tender. SKIN: No rashes or lesions. Warm. NEUROLOGIC: No focal neurological deficits. CN II-XII grossly intact PSYCHIATRIC: Cooperative. Appropriate mood and affect [facility] Medical History GERD (gastroesophageal reflux disease) Schizoaffective disorder PTSD (post-traumatic stress disorder) Diabetic polyneuropathy associated with type 2 diabetes mellitus Hypertension Dyslipidemia Morbid obesity Vitamin D deficiency jail (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 Diabetes type 2, uncontrolled Surgical History Hx of knee surgery Hx of wisdom tooth extraction Hx of hand surgery Family History Father Cancer Mother Cancer Diabetes Social History Household Members: None Alcohol intake: former Patient Tobacco Use Status: Never used Tobacco Second Hand Smoke Exposure: Yes Physical Exam Vital Signs: Last Vital Signs Pulse 64 08/30/24 13:47 BP 130/80 08/30/24 13:47 BMI result Body Mass Index 47.3 Results Reviewed Results Reviewed: Laboratory Last Values Glucose (Clinic) 195 mg/dL (60-115) H 08/30/24 13:52 Assessment & Plan Assessment & Plan (1) Diabetes type 2, uncontrolled: Code(s): E11.65 - Type 2 diabetes mellitus with hyperglycemia Category: Medical Qualifiers: Glycemic state: with hyperglycemia Qualified Code(s): E11.65 - Type 2 diabetes mellitus with hyperglycemia Plan: Improving glycemic control Increase mounjaro to 5mg weekly with increase as tolerated-no current side effects. Short term follow up (2) Diabetic polyneuropathy associated with type 2 diabetes mellitus: Code(s): E11.42 - Type 2 diabetes mellitus with diabetic polyneuropathy Category: Medical Plan: see above Medications: New tirzepatide (Mounjaro) 5 mg (0.5 mL) subcut QWEEK 6 mL 3RF Discontinued tirzepatide (Mounjaro) for 4 weeks Discontinued Reason: Doctor's Order 2.5 mg (0.5 mL) subcut QWEEK 2 mL 5RF Coding Level of Care Code Est Pt Level 4 (39168) Diagnoses Uncontrolled type 2 diabetes mellitus with hyperglycemia E11.65 Glycemic state: with hyperglycemia Diabetic polyneuropathy associated with type 2 diabetes mellitus E11.42
[2024-08-30 13:47] VITALS: BP 130/80; PULSE 64; BMI 47.3
[2024-08-30 13:56] LABS: Glucose, Whole Blood 195 mg/dL (60-115)
== END 2024-08-30 14:29 | disposition home or self-care (01) ==
PROVIDERS: PCP Internal Medicine; Visit Provider Internal Medicine
DX: E11.65 Type 2 diabetes mellitus with hyperglycemia (principal); E11.42 Type 2 diabetes mellitus with diabetic polyneuropathy

== ENCOUNTER → 2024-08-30 13:40 | Outpatient (BNVA) | payer OTHER, MEDICAID, SELFPAY | PROVIDERS: PCP Internal Medicine; Visit Provider Internal Medicine | DX: E11.65 Type 2 diabetes mellitus with hyperglycemia (principal); E11.42 Type 2 diabetes mellitus with diabetic polyneuropathy; Z79.4 Long term (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 | CPT/HCPCS: 82947; 99212 ==

== ENCOUNTER 2024-09-14 07:16 | Outpatient (AMB) | payer OTHER, MEDICAID, SELFPAY ==
--- NOTE | 2024-09-14 07:14 | MHC.AMDMED ---
Intake Intake Visit Reasons: 60 min Honeycomb Decapper Required: No Accompanied by: Self / Same As Patient Allergies ibuprofen [From MOTRIN] Allergy (Unknown, Verified 08/30/24 13:43) RECTAL BLEED topiramate [From TOPAMAX] Allergy (Unknown, Verified 08/30/24 13:43) RECTAL BLEED DAIRY PRODUCTS Allergy (Unknown, Uncoded 08/30/24 13:43) RECTAL BLEED AND SWELLING Wellbutrin Allergy (Unknown, Uncoded 08/30/24 13:43) unknown HPI Comprehensive Diabetes Asmnt Most Recent Diabetes Results: No Data to Display PFS Medical History GERD (gastroesophageal reflux disease) Schizoaffective disorder PTSD (post-traumatic stress disorder) Diabetic polyneuropathy associated with type 2 diabetes mellitus Hypertension Dyslipidemia Morbid obesity Vitamin D deficiency intermediate (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 Diabetes type 2, uncontrolled Surgical History Hx of knee surgery Hx of wisdom tooth extraction Hx of hand surgery Family History Father Cancer Mother Cancer Diabetes Social History Household Members: None Alcohol intake: former Patient Tobacco Use Status: Never used Tobacco Second Hand Smoke Exposure: Yes Assessment & Plan Assessment & Plan (1) Diabetes type 2, uncontrolled: Code(s): E11.65 - Type 2 diabetes mellitus with hyperglycemia Qualifiers: Glycemic state: with hyperglycemia Qualified Code(s): E11.65 - Type 2 diabetes mellitus with hyperglycemia Plan: Personal Continuous Glucose Monitor: Patients CGM information reviewed, Pt uses [email or web address] 3 with cell phone rikki Sensor data: Hypoglycemia: ? 0% Hyperglycemia:? 56% Time in Range:? 44% Average glucose for the last 2 weeks? 187 mg/dL Patient's last A1c in 07/2024 8% Patient reports over indulging the holiday times. Patient is now taking Mounjaro 5 mg weekly Lantus 40 units daily NovoLog 12-15 units before meals Discussed with patient reducing size of carbohydrate at meals, and choosing different low carbohydrate snack options Recommended patient use diabetes food [employer] for recipe ideas Patient given ADA smart snack handout Patient has upcoming October 04 with provider, we will see RD on October 09. Patient able to insert sensor independently at home without issue.? Portions of this note were created using voice recognition software, please excuse any words or phrases that may have been misinterpreted. Patient Instructions: Follow-up with commercial sheet metal foreman in 1 month Coding Level of Care Code Est Pt Level 1 (61655) Diagnoses Uncontrolled type 2 diabetes mellitus with hyperglycemia E11.65 Glycemic state: with hyperglycemia
== END 2024-09-14 07:23 | disposition home or self-care (01) ==
PROVIDERS: PCP Internal Medicine; Visit Provider Registered Nurse Diabetes Educator
DX: E11.65 Type 2 diabetes mellitus with hyperglycemia (principal)

== ENCOUNTER → 2024-09-14 07:16 | Outpatient (BNVA) | payer OTHER, MEDICAID, SELFPAY | PROVIDERS: PCP Internal Medicine; Visit Provider Registered Nurse Diabetes Educator | DX: E11.65 Type 2 diabetes mellitus with hyperglycemia (principal) | CPT/HCPCS: 99211 ==

== ENCOUNTER 2024-09-20 06:27 | Outpatient (REF) | payer OTHER, SELFPAY ==
[2024-09-20 07:38] LABS: Anion Gap 9 (12-20); Blood Urea Nitrogen 17 mg/dL (9-16); Calcium 9.3 mg/dL (8.4-10.2); Carbon Dioxide 33 mmol/L (22-29); Chloride 105 mmol/L (96-108); Cholesterol 130 mg/dL (<200); Estimated Glomerular Filt Rate > 60; Glucose Random 102 mg/dL (60-115); HDL Cholesterol 48 mg/dL (>40); LDL Cholesterol Calculated 63 mg/dL (<100); Potassium 4.1 mmol/L (3.3-5.1); Sodium 143 mmol/L (135-145); Triglycerides 98 mg/dL (<150)
[2024-09-20 08:27] LABS: Creatinine Urine 48.45 mg/dL; Microalbumin Urine < 5.0 mg/L
== END 2024-09-20 06:28 | disposition home or self-care (01) ==
LOC: HO.LAB 06:27
PROVIDERS: PCP Internal Medicine; Visit Provider Internal Medicine Endocrinology, Diabetes & Metabolism
DX: E11.65 Type 2 diabetes mellitus with hyperglycemia (principal)
CPT/HCPCS: 36415; 80048; 80061; 82570

== ENCOUNTER 2024-09-28 07:45 | Outpatient (AMB) | payer OTHER, SELFPAY ==
--- NOTE | 2024-09-28 08:03 | MHC.AMDMED ---
Intake Intake Visit Reasons: pt needs help with aline 3 Cigar Wrapper Tender Automatic Required: No Accompanied by: Self / Same As Patient Allergies ibuprofen [From MOTRIN] Allergy (Unknown, Verified 08/30/24 13:43) RECTAL BLEED topiramate [From TOPAMAX] Allergy (Unknown, Verified 08/30/24 13:43) RECTAL BLEED DAIRY PRODUCTS Allergy (Unknown, Uncoded 08/30/24 13:43) RECTAL BLEED AND SWELLING Wellbutrin Allergy (Unknown, Uncoded 08/30/24 13:43) unknown HPI Comprehensive Diabetes Asmnt Most Recent Diabetes Results: Microalb/Creat Ratio TNP 09/20/24 Cholesterol 130 mg/dL (<200) 09/20/24 HDL Cholesterol 48 mg/dL (>40) 09/20/24 Triglycerides 98 mg/dL (<150) 09/20/24 Creatinine 1.08 mg/dL (0.5-1.4) 09/20/24 Blood Urea Nitrogen 17 mg/dL (9-16) H 09/20/24 Sodium 143 mmol/L (135-145) 09/20/24 Potassium 4.1 mmol/L (3.3-5.1) 09/20/24 Chloride 105 mmol/L (96-108) 09/20/24 Carbon Dioxide 33 mmol/L (22-29) H 09/20/24 Calcium 9.3 mg/dL (8.4-10.2) 09/20/24 AST 26 U/L (5-37) 03/01/21 ALT 34 U/L (0-40) 03/01/21 Total Protein 6.9 g/dL (6.5-8.0) 03/01/21 Albumin 4.3 g/dL (3.5-5.0) 03/01/21 PENDING SALE TO [facility] Medical History GERD (gastroesophageal reflux disease) Schizoaffective disorder PTSD (post-traumatic stress disorder) Diabetic polyneuropathy associated with type 2 diabetes mellitus Hypertension Dyslipidemia 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 obesity 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 D deficiency 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 Diabetes type 2, uncontrolled Surgical History Hx of knee surgery Hx of wisdom tooth extraction Hx of hand surgery Family History Father Cancer Mother Cancer Diabetes Social History Household Members: None Alcohol intake: former Patient Tobacco Use Status: Never used Tobacco Second Hand Smoke Exposure: Yes Assessment & Plan Assessment & Plan (1) Diabetes type 2, uncontrolled: Code(s): E11.65 - Type 2 diabetes mellitus with hyperglycemia Qualifiers: Glycemic state: with hyperglycemia Qualified Code(s): E11.65 - Type 2 diabetes mellitus with hyperglycemia Plan: Personal Continuous Glucose Monitor: Patients CGM information reviewed, Pt uses Aline 3, with phone rikki Sensor data: Hypoglycemia: ? 0% Hyperglycemia:?44% Time in Range:56%? Average glucose for the last 2 weeks? 183 mg/dL having a few hypoglycemic events, reports that sometimes he takes more NovoLog than he is prescribed when glucose levels are high. Reviewed with patient how to treat hypoglycemia with rule of 15s, patient reports he treats low blood sugar with 426 glucose tabs. Instructed patient if glucose is between 50 to 70 mg/dL, he should use 3-4 glucose tabs. If glucose level drops below 50 mg/dL he should use up to 8 glucose tabs. Patient continues on Mounjaro 5 mg weekly Lantus 40 units daily NovoLog sliding scale prior to meals Patient has appointment with provider later on this morning, he is due for his next A1c. Stated at today's visit he does not want to change medications, wants to work on increasing exercise and decreasing carbohydrate portions at meals. Patient stated he can not afford his Aline 3 overlay patches currently Patient concerned about adhesion of Aline 3 sensors, recommended to patient to apply skin tac after cleaning skin with alcohol letting it fully dry in inserting Aline 3 sensor Patient stated he has a box of skin tac at home Patient able to insert sensor independently at home without issue.? Portions of this note were created using voice recognition software, please excuse any words or phrases that may have been misinterpreted. Coding Level of Care Code Est Pt Level 1 (34606) Diagnoses Uncontrolled type 2 diabetes mellitus with hyperglycemia E11.65 Glycemic state: with hyperglycemia
== END 2024-09-28 08:14 | disposition home or self-care (01) ==
PROVIDERS: PCP Internal Medicine; Visit Provider Registered Nurse Diabetes Educator
DX: E11.65 Type 2 diabetes mellitus with hyperglycemia (principal)

== ENCOUNTER 2024-09-28 07:45 | Outpatient (AMB) | payer OTHER, SELFPAY ==
[2024-09-28 08:25] VITALS: BP 132/84; PULSE 62; BMI 47.5
--- NOTE | 2024-09-28 08:25 | A.OFFVIS_ITS ---
Vital Signs 09/28/24 08:25 Height 6 ft 2 in Weight 370 lb 6.025 oz BMI 47.5 BP 132/84 Blood Pressure Location Rt brachial Position Sitting Pulse 62 Pulse Source Pulse Oximeter Intake Visit Reasons: DM Intake Note: Patient present today for Diabetes Mellitus Management Last Diabetic Eye exam: Within the year, has yearly exam Last Podiatry Visit: Does not see a Advanced Practice Provider, requesting referral. Most Recent HgA1C: 8.0% 08/02/2024 Random Glucose: 128 mg/dL, Today Inter Com Installer Required: No Accompanied by: Self / Same As Patient Allergies ibuprofen [From MOTRIN] Allergy (Unknown, Verified 09/28/24 08:25) RECTAL BLEED topiramate [From TOPAMAX] Allergy (Unknown, Verified 09/28/24 08:25) RECTAL BLEED DAIRY PRODUCTS Allergy (Unknown, Uncoded 09/28/24 08:25) RECTAL BLEED AND SWELLING Wellbutrin Allergy (Unknown, Uncoded 09/28/24 08:25) unknown HPI Comments Details: Patient is 49yo with DM type 2 diagnosed 2017 who presents for follow up diabetes Past medical history: Obesity, depression, PTSD, hypothyroidism, GERD, neuropathy Diabetes medications: Xigduo 06/1000 mg XR daily. Lantus 38 units at bedtime, mounjaro 5mg weekly (increased from 2.5 at last visit), Novolog <150 0 units, then sliding scale. He didn't tolerate Trulicity 0.75 mg weekly, and Victoza daily due to diarrhea. He feels great on the Mounjaro has never felt so good on a medication. Blood glucose monitoring: Aline - GMI 7.5%. He met with our diabetes educator today and plans to make more dietary changes. 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 Last ophthalmology evaluation: Summer 2023 Family hx of mother and maternal grandparents Type 2 DM ROS CONSTITUTIONAL: Denies weight loss, fever and chills. HEENT: Denies changes in vision and hearing. RESPIRATORY: Denies SOB and cough. CV: Denies palpitations and CP GI: Denies abdominal pain, nausea, vomiting and diarrhea. : Denies dysuria and urinary frequency. MSK: Denies new myalgia and joint pain. SKIN: Denies rash and pruritus. NEUROLOGICAL: Denies headache PSYCHIATRIC: Denies recent changes in mood. PHYSICAL EXAM: GENERAL: Alert and oriented x 3. NAD EYES: EOMI. Anicteric. HENT: Moist mucous membranes. No scleral icterus. No cervical lymphadenopathy. LUNGS: Clear to auscultation bilaterally. CARDIOVASCULAR: Regular rate and rhythm. No murmur. No JVD. ABDOMEN: Soft, non-tender +bs EXTREMITIES: No edema. Non-tender. SKIN: No rashes or lesions. Warm. NEUROLOGIC: No focal neurological deficits. CN II-XII grossly intact PSYCHIATRIC: Cooperative. 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 Diabetes type 2, uncontrolled Surgical History Hx of knee surgery Hx of wisdom tooth extraction Hx of hand surgery Family History Father Cancer Mother Cancer Diabetes Social History Household Members: None Alcohol intake: former Patient Tobacco Use Status: Never used Tobacco Second Hand Smoke Exposure: Yes Physical Exam Vital Signs: Last Vital Signs Pulse 62 09/28/24 08:25 BP 132/84 09/28/24 08:25 BMI result Body Mass Index 47.5 Results Reviewed Results Reviewed: Laboratory Last Values Glucose (Clinic) 128 mg/dL (60-115) H 09/28/24 08:29 Assessment & Plan Assessment & Plan (1) Diabetic polyneuropathy associated with type 2 diabetes mellitus: Code(s): E11.42 - Type 2 diabetes mellitus with diabetic polyneuropathy Category: Medical Plan: Improving glycemic control He would like to continue current medication dose, make some dietary & lifestyle changes and return in 3 months for A1C and follow up. He will call sooner as needed Coding Level of Care Code Est Pt Level 4 (20388) Diagnoses Diabetic polyneuropathy associated with type 2 diabetes mellitus E11.42
[2024-09-28 08:33] LABS: Glucose, Whole Blood 128 mg/dL (60-115)
== END 2024-09-28 09:02 | disposition home or self-care (01) ==
PROVIDERS: PCP Internal Medicine; Visit Provider Internal Medicine
DX: E11.42 Type 2 diabetes mellitus with diabetic polyneuropathy (principal)

== ENCOUNTER → 2024-09-28 07:45 | Outpatient (BNVA) | payer OTHER, SELFPAY | PROVIDERS: PCP Internal Medicine; Visit Provider Internal Medicine | DX: E11.42 Type 2 diabetes mellitus with diabetic polyneuropathy (principal) | CPT/HCPCS: 82947; 99211; 99212 ==

== ENCOUNTER 2024-10-09 12:26 | Outpatient (AMB) | payer OTHER, MEDICAID, SELFPAY ==
--- NOTE | 2024-10-09 13:26 | A.OFFVIS_ITS ---
VS Expanded 10/09/24 13:27 10/12/24 14:40 Height 6 ft 2 in 6 ft 2 in Weight 374 lb 1.991 oz 374 lb BMI 48.0 48.0 Intake Visit Reasons: DM Allergies ibuprofen [From MOTRIN] Allergy (Unknown, Verified 09/28/24 08:25) RECTAL BLEED topiramate [From TOPAMAX] Allergy (Unknown, Verified 09/28/24 08:) RECTAL BLEED DAIRY PRODUCTS Allergy (Unknown, Uncoded 09/28/24 08:25) RECTAL BLEED AND SWELLING Wellbutrin Allergy (Unknown, Uncoded 09/28/24 08:) unknown Nutrition Presentation Details: Pt presents for MNT for T2DM Pt was last seen for nutrition in 2020 Food frequency fruits: 0/d vex/wk dairy 4+ starches > 30 prot: variety 18serving/d sugary beverages 24oz/d pastries and similar daily >1/d phyisical activity : daily life etoh/smoking--- BS Monitoring Most Recent Diabetes Results: Microalb/Creat Ratio TNP 09/20/24 Cholesterol 130 mg/dL (<200) 09/20/24 HDL Cholesterol 48 mg/dL (>40) 09/20/24 Triglycerides 98 mg/dL (<150) 09/20/24 Creatinine 1.08 mg/dL (0.5-1.4) 09/20/24 Blood Urea Nitrogen 17 mg/dL (9-16) H 09/20/24 Sodium 143 mmol/L (135-145) 09/20/24 Potassium 4.1 mmol/L (3.3-5.1) 09/20/24 Chloride 105 mmol/L (96-108) 09/20/24 Carbon Dioxide 33 mmol/L (22-29) H 09/20/24 Calcium 9.3 mg/dL (8.4-10.2) 09/20/24 BLO-[id number].Jeor Equation Height: 6 ft 2 in Weight: 374 lb Resting Metabolic Rate: 2623.57 Calculated Activity Level: Sedentary Calories Needed to Maintain Weight: 3148.28 Diagnosis Nutrition problem #1: excessive energy intake (of sugary foods > 8 oz /d) As related to (etiology) #1: diagnosis As evidenced by (sign/symptom) #1: food recall [facility] Medical History GERD (gastroesophageal reflux disease) Schizoaffective disorder PTSD (post-traumatic stress disorder) Diabetic polyneuropathy associated with type 2 diabetes mellitus Hypertension Dyslipidemia Morbid obesity Vitamin D deficiency senior 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 Diabetes type 2, uncontrolled Surgical History Hx of knee surgery Hx of wisdom tooth extraction Hx of hand surgery Family History Father Cancer Mother Cancer Diabetes Social History Household Members: None Alcohol intake: former Patient Tobacco Use Status: Never used Tobacco Second Hand Smoke Exposure: Yes Assessment & Plan Assessment & Plan (1) Diabetic polyneuropathy associated with type 2 diabetes mellitus: Code(s): E11.42 - Type 2 diabetes mellitus with diabetic polyneuropathy Category: Medical Plan: Wt: 170 Kg ( 10/07 ) Est kcal needs as per MSJ: 3100 (40% carb, 30% protein/fat) Est fluid needs as per 25-30 ml/d: 5100 Est prot per day as per 1 g/kg bw: 170 Recommend fiber intake : 8-10 g per day and gradually increase to 25-28 g per day for women and 35-38 g for men or as tolerated Recommend sodium intake per day : less than 2300 mg Educated patient on: ( R = reviewed V = verbalizes understanding N/R = needs review N/A = not applicable * Food sources of carbohydrate, adequate serving sizes and its role in various health conditions: R * Differences between complex carbohydrates a simple carbohydrates, role of fiber in diet: R V N/R * Lean protein sources of foods: R V NR * Differences between types of fats and role in diet (mono on saturated fat fatty acids, saturated fatty acids, trans fats): R V N/R * Food sources of sodium in salt and healthy modifications for heart health in kidney health: R V R/V * Vitamins and minerals: R V N/R * Healthy plate method concept: R V N/R * Physical activity: Benefits a precaution: R V N/R * Hypoglycemia protocol (rule of 15): R V N/R * Dietary prevention of Hyperglycemia: R Patient Instructions: Switch to low sugar beverages (seltzer water, dilute juices with water, discontinue regular sodas ) Add non starchy vegetable to meat sauce to increase fiber Coding Level of Care Code Nutr Indiv Intake (53820) Diagnoses Diabetic polyneuropathy associated with type 2 diabetes mellitus E11.42 Time Spent (min) 30
[2024-10-09 13:27] VITALS: BMI 48.0
[2024-10-12 14:40] VITALS: BMI 48.0
== END 2024-10-09 13:37 | disposition home or self-care (01) ==
PROVIDERS: PCP Internal Medicine; Visit Provider Dietitian, Registered
DX: E11.42 Type 2 diabetes mellitus with diabetic polyneuropathy (principal)

== ENCOUNTER → 2024-10-09 12:26 | Outpatient (BNVA) | payer OTHER, MEDICAID, SELFPAY | PROVIDERS: PCP Internal Medicine; Visit Provider Dietitian, Registered | DX: E11.42 Type 2 diabetes mellitus with diabetic polyneuropathy (principal) | CPT/HCPCS: 97802 ==

== ENCOUNTER 2024-10-24 12:05 | Outpatient (AMB) | payer OTHER, MEDICAID, SELFPAY ==
--- NOTE | 2024-10-24 12:17 | MHC.AMDMED ---
Intake Intake Visit Reasons: set up CGM on phone Allergies ibuprofen [From MOTRIN] Allergy (Unknown, Verified 09/28/24 08:25) RECTAL BLEED topiramate [From TOPAMAX] Allergy (Unknown, Verified 09/28/24 08:25) RECTAL BLEED DAIRY PRODUCTS Allergy (Unknown, Uncoded 09/28/24 08:25) RECTAL BLEED AND SWELLING Wellbutrin Allergy (Unknown, Uncoded 09/28/24 08:25) unknown HPI Comprehensive Diabetes Asmnt Most Recent Diabetes Results: Microalb/Creat Ratio TNP 09/20/24 Cholesterol 130 mg/dL (<200) 09/20/24 HDL Cholesterol 48 mg/dL (>40) 09/20/24 Triglycerides 98 mg/dL (<150) 09/20/24 Creatinine 1.08 mg/dL (0.5-1.4) 09/20/24 Blood Urea Nitrogen 17 mg/dL (9-16) H 09/20/24 Sodium 143 mmol/L (135-145) 09/20/24 Potassium 4.1 mmol/L (3.3-5.1) 09/20/24 Chloride 105 mmol/L (96-108) 09/20/24 Carbon Dioxide 33 mmol/L (22-29) H 09/20/24 Calcium 9.3 mg/dL (8.4-10.2) 09/20/24 [facility] Medical History GERD (gastroesophageal reflux disease) Schizoaffective disorder PTSD (post-traumatic stress disorder) Diabetic polyneuropathy associated with type 2 diabetes mellitus Hypertension Dyslipidemia Morbid obesity Vitamin D deficiency [facility] (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 Diabetes type 2, uncontrolled Surgical History Hx of knee surgery Hx of wisdom tooth extraction Hx of hand surgery Family History Father Cancer Mother Cancer Diabetes Social History Household Members: None Alcohol intake: former Patient Tobacco Use Status: Never used Tobacco Second Hand Smoke Exposure: Yes Assessment & Plan Assessment & Plan (1) Diabetes type 2, uncontrolled: Code(s): E11.65 - Type 2 diabetes mellitus with hyperglycemia Qualifiers: Glycemic state: with hyperglycemia Qualified Code(s): E11.65 - Type 2 diabetes mellitus with hyperglycemia Plan: Patient at visit to set up and re-insert Aline 3 with phone rikki Patient inadvertently removed rikki from smart phone Instructed patient sensors water proof you can shower, or swim do not submerge sensor in water for over 30 minutes Is sensor falls off cannot put back in you need to replace sensor, customer service number given to patient for sensor replacement Sensor placed on the back of Left arm Patient left visit with sensor in warmup Reviewed how to interpret trend arrows Reminded patient that to check finger sticks if symptoms do not match sensor reading. Discussed lag time between finger stick and sensor data.? Instructed patient she should always keep blood glucometer for backup testing if needed Reviewed delay of CGM from fingersticks Reminded pt that if symptoms do not match sensor still needs to check fingersticks. Portions of this note were created using voice recognition software, please excuse any words or phrases that may have been misinterpreted. Patient Instructions: Patient instruction: CGM provides information on blood glucose control throughout the day, including hyperglycemia and hypoglycemia. ? Continue to monitor blood glucose as instructed. Follow nutrition guidelines provided. Report any discomfort promptly to health care provider. ?Stay well-hydrated. You can bathe ,shower, swim and exercise while wearing the glucose sensor. Do not submerge glucose sensor in water for more than 30 minutes. Coding Level of Care Code Est Pt Level 1 (76799) Diagnoses Uncontrolled type 2 diabetes mellitus with hyperglycemia E11.65 Glycemic state: with hyperglycemia
== END 2024-10-24 12:20 | disposition home or self-care (01) ==
PROVIDERS: PCP Internal Medicine; Visit Provider Registered Nurse Diabetes Educator
DX: E11.65 Type 2 diabetes mellitus with hyperglycemia (principal)

== ENCOUNTER → 2024-10-24 12:05 | Outpatient (BNVA) | payer OTHER, MEDICAID, SELFPAY | PROVIDERS: PCP Internal Medicine; Visit Provider Registered Nurse Diabetes Educator | DX: E11.65 Type 2 diabetes mellitus with hyperglycemia (principal) | CPT/HCPCS: 99211 ==

== ENCOUNTER 2024-11-15 13:05 | Outpatient (AMB) | payer OTHER, MEDICAID, SELFPAY ==
--- NOTE | 2024-11-15 13:29 | A.OFFVIS_ITS ---
Vital Signs 11/15/24 13:30 Height 6 ft 2 in Weight 372 lb 9.299 oz BMI 47.8 BP 122/80 Blood Pressure Location Rt brachial Position Sitting Pulse 72 Pulse Source Pulse Oximeter Pulse Oximetry (%) 96 Oxygen Delivery Method Room Air Intake Visit Reasons: High Blood Sugars Intake Note: Patient present today for Diabetes Mellitus Management Last Diabetic Eye exam: Within the year, has yearly exam Last Podiatry Visit: Does not see a Program Engineer, requesting referral. Most Recent HgA1C: 7.6, 11/15/2024 Random Glucose: 211 mg/dL, Today Title Processor Required: No Accompanied by: Self / Same As Patient Allergies ibuprofen [From MOTRIN] Allergy (Unknown, Verified 09/28/24 08:25) RECTAL BLEED topiramate [From TOPAMAX] Allergy (Unknown, Verified 09/28/24 08:25) RECTAL BLEED DAIRY PRODUCTS Allergy (Unknown, Uncoded 09/28/24 08:25) RECTAL BLEED AND SWELLING Wellbutrin Allergy (Unknown, Uncoded 09/28/24 08:25) unknown HPI Comments Details: Patient is 49yo with DM type 2 diagnosed 2017 who presents for follow up diabetes Past medical history: Obesity, depression, PTSD, hypothyroidism, GERD, neuropathy Diabetes medications: Xigduo 06/1000 mg XR daily. Lantus 38 units at bedtime, mounjaro 5mg weekly, Novolog <150 0 units, then sliding scale. He didn't tolerate Trulicity 0.75 mg weekly, and Victoza daily due to diarrhea. He feels great on the Mounjaro but his appetite has returned and he is no longer losing weight. Says glucose has been running higher as such Blood glucose monitoring: Aline - GMI 7.6 from 8.0%. 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 Has started to go for walks. Last ophthalmology evaluation: Summer 2023 Family hx of mother and maternal grandparents Type 2 DM ROS CONSTITUTIONAL: Denies weight loss, fever and chills. HEENT: Denies changes in vision and hearing. RESPIRATORY: Denies SOB and cough. CV: Denies palpitations and CP GI: Denies abdominal pain, nausea, vomiting and diarrhea. : Denies dysuria and urinary frequency. MSK: Denies new myalgia and joint pain. SKIN: Denies rash and pruritus. NEUROLOGICAL: Denies headache PSYCHIATRIC: Denies recent changes in mood. PHYSICAL EXAM: GENERAL: Alert and oriented x 3. NAD EYES: EOMI. Anicteric. HENT: Moist mucous membranes. No scleral icterus. No cervical lymphadenopathy. LUNGS: Clear to auscultation bilaterally. CARDIOVASCULAR: Regular rate and rhythm. No murmur. No JVD. ABDOMEN: Soft, non-tender +bs EXTREMITIES: No edema. Non-tender. SKIN: No rashes or lesions. Warm. NEUROLOGIC: No focal neurological deficits. CN II-XII grossly intact PSYCHIATRIC: Cooperative. Appropriate mood and affect [facility] Medical History GERD (gastroesophageal reflux disease) Schizoaffective disorder PTSD (post-traumatic stress disorder) Diabetic polyneuropathy associated with type 2 diabetes mellitus Hypertension Dyslipidemia Morbid obesity Vitamin D deficiency jail (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 Diabetes type 2, uncontrolled Surgical History Hx of knee surgery Hx of wisdom tooth extraction Hx of hand surgery Family History Father Cancer Mother Cancer Diabetes Social History Household Members: None Alcohol intake: former Patient Tobacco Use Status: Never used Tobacco Second Hand Smoke Exposure: Yes Physical Exam Vital Signs: Last Vital Signs Pulse 72 11/15/24 13:30 BP 122/80 11/15/24 13:30 Pulse Ox 96 11/15/24 13:30 Oxygen Delivery Method Room Air 11/15/24 13:30 BMI result Body Mass Index 47.8 Results AMB Hemoglobin A1c AMB Hemoglobin A1c 7.6 % Last Edit by DEVIN Ng on 11/15/24 13:46 Results Reviewed Results Reviewed: Laboratory Last Values Glucose (Clinic) 211 mg/dL (60-115) H 11/15/24 13:34 Hgb A1c (Clinic) 7.6 % (4.0-6.0) H 11/15/24 13:44 Assessment & Plan Assessment & Plan (1) Diabetic polyneuropathy associated with type 2 diabetes mellitus: Code(s): E11.42 - Type 2 diabetes mellitus with diabetic polyneuropathy Category: Medical Plan: Increase mounjaro to 7.5mg weekly Close follow up already scheduled Continue all other medications as currently dosed. Orders: Orders AMB Hemoglobin A1c Today E11.65 - Type 2 diabetes mellitus with hyperglycemia Medications: New 2 tirzepatide (Mounjaro) 7.5 mg (0.5 mL) subcut QWEEK 6 mL 3RF E11.42 - Type 2 diabetes mellitus with diabetic polyneuropathy, E11.65 - Type 2 diabetes mellitus with hyperglycemia Changed From insulin aspart U-100 (Novolog FlexPen U-100 Insulin aspart) 8 - 14 units (0.08 - 0.14 mL) subcut TID 15 mL 6RF To insulin aspart U-100 (Novolog FlexPen U-100 Insulin aspart) If BG 150-199 8 units If BG 200-249 10 units If BG 250-299 12 units If BG >/=300 14 units 8 - 14 units (0.08 - 0.14 mL) subcut TID 30 mL 6RF Refilled FreeStyle Aline 3 Sensor (blood-glucose sensor) every 14 days 6 ea 3RF NS E11. 65 - Type 2 diabetes mellitus with hyperglycemia, Z79.4 - jail (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 Discontinued tirzepatide (Mounjaro) Discontinued Reason: Doctor's Order 5 mg (0.5 mL) subcut QWEEK 6 mL 3RF Coding Level of Care Code Est Pt Level 4 (60925) Diagnoses Diabetic polyneuropathy associated with type 2 diabetes mellitus E11.42
[2024-11-15 13:30] VITALS: BP 122/80; PULSE 72; O2SAT 96; BMI 47.8
[2024-11-15 13:39] LABS: Glucose, Whole Blood 211 mg/dL (60-115)
== END 2024-11-15 14:20 | disposition home or self-care (01) ==
PROVIDERS: PCP Internal Medicine; Visit Provider Internal Medicine
DX: E11.42 Type 2 diabetes mellitus with diabetic polyneuropathy (principal); E11.65 Type 2 diabetes mellitus with hyperglycemia

== ENCOUNTER → 2024-11-15 13:05 | Outpatient (BNVA) | payer OTHER, SELFPAY | PROVIDERS: PCP Internal Medicine; Visit Provider Internal Medicine | DX: E11.42 Type 2 diabetes mellitus with diabetic polyneuropathy (principal); E11.65 Type 2 diabetes mellitus with hyperglycemia; Z79.4 Long term (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; Z79.899 Other long term (current) drug therapy | CPT/HCPCS: 82947; 83036; 99212 ==

== ENCOUNTER 2024-11-20 13:00 | Outpatient (AMB) | payer OTHER, MEDICAID, SELFPAY ==
--- NOTE | 2024-11-20 13:45 | A.OFFVIS_ITS ---
VS Expanded 11/20/24 13:50 Height 6 ft 2 in Weight 366 lb 6.532 oz BMI 47.0 Intake Visit Reasons: T2DM Allergies ibuprofen [From MOTRIN] Allergy (Unknown, Verified 09/28/24 08:25) RECTAL BLEED topiramate [From TOPAMAX] Allergy (Unknown, Verified 09/28/24 08:25) RECTAL BLEED DAIRY PRODUCTS Allergy (Unknown, Uncoded 09/28/24 08:25) RECTAL BLEED AND SWELLING Wellbutrin Allergy (Unknown, Uncoded 09/28/24 08:25) unknown Nutrition Presentation Details: Pt presents for MNT f/u for T2DM Pt reports working on diet modifications BS Monitoring Most Recent Diabetes Results: No Data to Display PFS Medical History GERD (gastroesophageal reflux disease) Schizoaffective disorder PTSD (post-traumatic stress disorder) Diabetic polyneuropathy associated with type 2 diabetes mellitus Hypertension Dyslipidemia 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 obesity 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 Diabetes type 2, uncontrolled Surgical History Hx of knee surgery Hx of wisdom tooth extraction Hx of hand surgery Family History Father Cancer Mother Cancer Diabetes Social History Household Members: None Alcohol intake: former Patient Tobacco Use Status: Never used Tobacco Second Hand Smoke Exposure: Yes Assessment & Plan Assessment & Plan (1) Diabetic polyneuropathy associated with type 2 diabetes mellitus: Code(s): E11.42 - Type 2 diabetes mellitus with diabetic polyneuropathy Category: Medical Plan: Wt: 170 Kg ( 10/07 ), (12/05), 166 kg(12/05) Est kcal needs as per MSJ: 3100 (40% carb, 30% protein/fat) Est fluid needs as per 25-30 ml/d: 5100 Est prot per day as per 1 g/kg bw: 170 Recommend fiber intake : 8-10 g per day and gradually increase to 25-28 g per day for women and 35-38 g for men or as tolerated Recommend sodium intake per day : less than 2300 mg Educated patient on: ( R = reviewed V = verbalizes understanding N/R = needs review N/A = not applicable * Food sources of carbohydrate, adequate serving sizes and its role in various health conditions: R * Differences between complex carbohydrates a simple carbohydrates, role of fiber in diet: R V N/R * Lean protein sources of foods: R V NR * Differences between types of fats and role in diet (mono on saturated fat fatty acids, saturated fatty acids, trans fats): R V N/R * Food sources of sodium in salt and healthy modifications for heart health in kidney health: R V R/V * Vitamins and minerals: R V N/R * Healthy plate method concept: R V N/R * Physical activity: Benefits a precaution: R V N/R * Hypoglycemia protocol (rule of 15): R V N/R * Dietary prevention of Hyperglycemia: R Patient Instructions: Continue having a combination of non starchy vegetables with low sodium seasonings and 2 cup cooked of starches (whole wheat pasta/quinoa/lentils) as part of your meal for a higher fiber meal Drink water with meals/snacks , to keep hydrated and to prevent constipation as you increase fiber intake Coding Level of Care Code Nutr Indiv Subseq (78090) Diagnoses Diabetic polyneuropathy associated with type 2 diabetes mellitus E11.42 Time Spent (min) 30
[2024-11-20 13:50] VITALS: BMI 47.0
== END 2024-11-20 14:58 | disposition home or self-care (01) ==
PROVIDERS: PCP Internal Medicine; Visit Provider Dietitian, Registered
DX: E11.42 Type 2 diabetes mellitus with diabetic polyneuropathy (principal)

== ENCOUNTER → 2024-11-20 13:00 | Outpatient (BNVA) | payer OTHER, SELFPAY | PROVIDERS: PCP Internal Medicine; Visit Provider Dietitian, Registered | DX: E11.42 Type 2 diabetes mellitus with diabetic polyneuropathy (principal) | CPT/HCPCS: 97803 ==

== ENCOUNTER 2024-12-07 10:08 | Outpatient (AMB) | payer OTHER, SELFPAY ==
--- NOTE | 2024-12-07 10:36 | MHC.AMDMED ---
Intake Intake Visit Reasons: CGM help Retail And Promotions Coordinator Required: No Accompanied by: Self / Same As Patient Allergies ibuprofen [From MOTRIN] Allergy (Unknown, Verified 09/28/24 08:25) RECTAL BLEED topiramate [From TOPAMAX] Allergy (Unknown, Verified 09/28/24 08:25) RECTAL BLEED DAIRY PRODUCTS Allergy (Unknown, Uncoded 09/28/24 08:25) RECTAL BLEED AND SWELLING Wellbutrin Allergy (Unknown, Uncoded 09/28/24 08:25) unknown HPI Comprehensive Diabetes Asmnt Most Recent Diabetes Results: Microalb/Creat Ratio TNP 09/20/24 Cholesterol 130 mg/dL (<200) 09/20/24 HDL Cholesterol 48 mg/dL (>40) 09/20/24 Triglycerides 98 mg/dL (<150) 09/20/24 Creatinine 1.08 mg/dL (0.5-1.4) 09/20/24 Blood Urea Nitrogen 17 mg/dL (9-16) H 09/20/24 Sodium 143 mmol/L (135-145) 09/20/24 Potassium 4.1 mmol/L (3.3-5.1) 09/20/24 Chloride 105 mmol/L (96-108) 09/20/24 Carbon Dioxide 33 mmol/L (22-29) H 09/20/24 Calcium 9.3 mg/dL (8.4-10.2) 09/20/24 AST 26 U/L (5-37) 03/01/21 ALT 34 U/L (0-40) 03/01/21 Total Protein 6.9 g/dL (6.5-8.0) 03/01/21 Albumin 4.3 g/dL (3.5-5.0) 03/01/21 [facility] Medical History GERD (gastroesophageal reflux disease) Schizoaffective disorder PTSD (post-traumatic stress disorder) Diabetic polyneuropathy associated with type 2 diabetes mellitus Hypertension Dyslipidemia Morbid obesity Vitamin D deficiency [facility] (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 Diabetes type 2, uncontrolled Surgical History Hx of knee surgery Hx of wisdom tooth extraction Hx of hand surgery Family History Father Cancer Mother Cancer Diabetes Social History Household Members: None Alcohol intake: former Patient Tobacco Use Status: Never used Tobacco Second Hand Smoke Exposure: Yes Assessment & Plan Assessment & Plan (1) Diabetes type 2, uncontrolled: Code(s): E11.65 - Type 2 diabetes mellitus with hyperglycemia Qualifiers: Glycemic state: with hyperglycemia Qualified Code(s): E11.65 - Type 2 diabetes mellitus with hyperglycemia Plan: Patient at visit to set up an insert Aline 3+ sensor with smartphone rikki Patient reports he can not hear alerts from Aline 3 reader, so he would like to go back to using his cell phone to review glucose numbers [employer] User Name:[email or web address] [email or web address] Instructed patient sensors water proof you can shower, or swim do not submerge sensor in water for over 30 minutes Is sensor falls off cannot put back in you need to replace sensor, customer service number given to patient for sensor replacement Sensor placed on the back of left arm Patient left visit with sensor in warmup Reviewed how to interpret trend arrows Discussed lag time between finger stick and sensor data.? Instructed patient the importance of having blood glucometer for backup testing if needed Reviewed delay of CGM from fingersticks Reminded Pt that if symptoms do not match sensor still needs to check fingersticks. Portions of this note were created using voice recognition software, please excuse any words or phrases that may have been misinterpreted. Patient Instructions: Follow-up with life skills educator in 3 months Coding Level of Care Code Est Pt Level 1 (81435) Diagnoses Uncontrolled type 2 diabetes mellitus with hyperglycemia E11.65 Glycemic state: with hyperglycemia
== END 2024-12-07 10:46 | disposition home or self-care (01) ==
LOC: HO.ENCR 10:09
PROVIDERS: PCP Internal Medicine; Visit Provider Registered Nurse Diabetes Educator
DX: E11.65 Type 2 diabetes mellitus with hyperglycemia (principal)

== ENCOUNTER → 2024-12-07 10:08 | Outpatient (BNVA) | payer OTHER, SELFPAY | PROVIDERS: PCP Internal Medicine; Visit Provider Registered Nurse Diabetes Educator | DX: E11.65 Type 2 diabetes mellitus with hyperglycemia (principal) | CPT/HCPCS: 99211 ==

== ENCOUNTER 2024-12-08 18:07 | Emergency (ER) | payer OTHER, SELFPAY ==
--- NOTE | ~2024-12-08 | XR_ITS ---
CLINICAL HISTORY: ? foreign body ventral surface Five views of the left wrist. COMPARISON: None FINDINGS: Distal radius and ulna appear intact. Carpal and metacarpals appear intact and normal in alignment. No radiopaque foreign body identified. IMPRESSION: 1. No radiopaque foreign body identified. This document has been electronically signed by: Demetrius Perez MD on 12/08/2024 19:10:18
[2024-12-08 18:20] VITALS: BP 154/107; PULSE 61; RESP 16; TEMP 36.8; O2SAT 95; BMI 48.1
--- NOTE | 2024-12-08 18:27 | ED_ITS ---
HPI - General Adult General Chief complaint: Skin/Abscess/Foreign Body Stated complaint: Infected wound on left arm Time Seen by Provider: 12/08/24 21:29 Source: patient Limitations: no limitations History of Present Illness ED Provider: Flor Meier PA-C HPI narrative: 49-year-old male presents for evaluation of left forearm pain. He was out doing yd work, did not noticed that he scratched himself but when he was in the shower afterwards he noticed a small scratch and feels as if there is something stuck under his skin. He tried to remove it with tweezers but was unsuccessful. He has a small scratch to the ventral surface of his left wrist/distal forearm. Related Data Home Medications ?Medication ?Instructions ?Recorded ?Confirmed clonazepam 0.5 mg tablet 0.5 mg PO BID 11/04/20 06/03/21 gabapentin 300 mg capsule 300 mg PO 11/04/20 10/07/21 levothyroxine 137 mcg tablet 137 mcg PO 11/04/20 03/05/22 paliperidone 9 mg tablet,extended 9 mg PO 11/04/20 06/03/21 release 24 hr valsartan 320 mg tablet 320 mg PO 11/04/20 03/05/22 cholecalciferol (vitamin D3) 50 50 mcg PO DAILY 06/03/21 03/05/22 mcg (2,000 unit) capsule omeprazole 40 mg capsule,delayed 40 mg PO 06/03/21 03/05/22 release Previous Rx's ?Medication ?Instructions ?Recorded blood sugar diagnostic (FreeStyle #150 ea 03/21/21 Lite Strips) Accu-Chek Fastclix Lancet Drum #100 ea 03/28/21 (lancets) Accu-Chek Guide test strips (blood #100 ea 03/28/21 sugar diagnostic) atorvastatin 10 mg tablet 10 mg PO BEDTIME 30 days #30 tabs 09/15/21 Accu-Chek Guide Glucose Meter #1 10/07/21 (blood-glucose meter) pen needle, diabetic 32 gauge x #150 ea 01/21/22 (BD Ultra-Fine Soco Pen Needle) dapagliflozin propaned 10 1 tab PO DAILY #30 tabs 03/05/22 mg-metformin ER 1,000 mg tablet,ext rel 24hr (Xigduo XR) insulin glargine 100 unit/mL (3 40 unit (0.4 mL) subcut QPM #15 mL 03/05/22 mL) subcutaneous pen FreeStyle Aline 3 Long Bottom #1 ea 10/18/24 (blood-glucose meter,continuous) insulin aspart U-100 100 unit/mL 8 - 14 unit (0.08 - 0.14 mL) 11/15/24 (3 mL) subcutaneous pen (Novolog subcut TID #30 mL FlexPen U-100 Insulin aspart) tirzepatide 7.5 mg/0.5 mL 7.5 mg (0.5 mL) subcut QWEEK #6 mL 11/15/24 subcutaneous pen injector (Mounjaro) FreeStyle Aline 3 Sensor #6 ea 11/22/24 (blood-glucose sensor) Allergies Allergy/AdvReac Type Severity Reaction Status Date / Time ibuprofen [From MOTRIN] Allergy Unknown RECTAL Verified 12/08/24 18:23 BLEED topiramate [From TOPAMAX] Allergy Unknown RECTAL Verified 12/08/24 18:23 BLEED DAIRY PRODUCTS Allergy Unknown RECTAL Uncoded 09/28/24 08:25 BLEED AND SWELLING Wellbutrin Allergy Unknown unknown Uncoded 09/28/24 08:25 Review of Systems Review of Systems: Yes all other systems are reviewed and are negative Constitutional: Constitutional: Denies fatigue and Denies fever(s) Musculoskeletal: Musculoskeletal: Denies arthralgias and Denies joint swelling Integumentary/Breasts: Skin/Breast: Denies erythema and Reports other (Faint excoriation) Endocrine: Endocrine: Denies fatigue PMFSH Past Medical History Attestation statement: The following information was validated with the patient. Medical History GERD (gastroesophageal reflux disease) Schizoaffective disorder PTSD (post-traumatic stress disorder) Diabetic polyneuropathy associated with type 2 diabetes mellitus Hypertension Dyslipidemia Morbid obesity Vitamin D deficiency [facility] (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 Diabetes type 2, uncontrolled Surgical History Hx of knee surgery Hx of wisdom tooth extraction Hx of hand surgery Family History Family History Father Cancer Mother Cancer Diabetes Social History Social History Household Members: None Alcohol intake: former Patient Tobacco Use Status: Never used Tobacco Smoked in Last 30 Days: No Second Hand Smoke Exposure: Yes Use of substances other than those prescribed or required for medical reasons: No Advance Directives: No Advance Directives Information Provided: No Physical Exam ED Vital Signs: Vital Signs - 24 hr 12/08/24 18:20 12/08/24 20:53 Temperature 98.2 F 98.5 F Pulse Rate 61 62 Respiratory Rate 16 16 Blood Pressure 154/107 H 108/69 Pulse Oximetry 95 94 Oxygen Delivery Method Room Air Room Air BMI result Body Mass Index 48.1 Const Other: Alert Orientation/consciousness: patient oriented x3 Resp Effort & Inspection: normal respiratory effort Cardio Other: Normal peripheral perfusion Skin Other: Faint excoriation noted with a very minute scab no erythema no swelling no , over left forearm Neuro General: patient oriented x3, gait normal, no focal motor deficits and CN's II- XI intact bilaterally Psych Other: Cooperative Course Course Course Narrative: RME, this is a rapid medical exam performed by Blake Eng please refer to primary provider for complete H&P- 49-year-old male presents for evaluation of left forearm pain. He was out doing yd work, did not noticed that he scratched himself but when he was in the shower afterwards he noticed a small scratch and feels as if there is something stuck under his skin. He tried to remove it with tweezers but was unsuccessful. He has a small scratch to the ventral surface of his left wrist/distal forearm. Plan for x-ray Medical Decision Making Medical Decision Making [facility] Narrative: 49-year-old male presents for evaluation of left forearm pain. He was out doing yd work, did not noticed that he scratched himself but when he was in the shower afterwards he noticed a small scratch and feels as if there is something stuck under his skin. He tried to remove it with tweezers but was unsuccessful. He has a small scratch to the ventral surface of his left wrist/distal forearm. This is a scratch with a tiny scab no intervention require Discharge Plan Discharge Clinical Impression: Excoriation Patient Disposition: Home, Self-Care Additional Instructions: You have a scratch with a tiny scab it will heal. Follow up with primary care as needed Prescriptions: No Action (DME) FreeStyle Lite Strips Strip See Rx Instructions .MEDSUPPLY Qty: 150 6RF Rx Instructions: 4 times a day (DME) lancets [Accu-Chek Fastclix Lancet Drum] Misc See Rx Instructions .MEDSUPPLY Qty: 100 6RF Rx Instructions: 3 times a day (DME) Accu-Chek Guide test strips Strip See Rx Instructions .ROUTE .MEDSUPPLY Qty: 100 6RF Rx Instructions: 3 times a day atorvastatin 10 mg tablet 10 mg PO BEDTIME 30 Days Qty: 30 4RF (DME) pen needle, diabetic [BD Ultra-Fine Soco Pen Needle] 32 gauge x 5/32 needle See Rx Instructions .ROUTE .MEDSUPPLY Qty: 150 10RF Rx Instructions: 4 times a day (DME) FreeStyle Aline 3 Long Bottom Misc See Rx Instructions .Route Qty: 1 0RF Rx Instructions: As directed (DME) FreeStyle Aline 3 Sensor Device See Rx Instructions .Route Qty: 6 3RF Rx Instructions: every 14 days clonazepam 0.5 mg tablet 0.5 mg PO BID gabapentin 300 mg capsule 300 mg PO Rx Instructions: 300 am , 600 pm levothyroxine 137 mcg tablet 137 mcg PO paliperidone 9 mg tablet extended release 24hr 9 mg PO valsartan 320 mg tablet 320 mg PO omeprazole 40 mg capsule,delayed release(DR/EC) 40 mg PO (DME) blood-glucose meter [Accu-Chek Guide Glucose Meter] Misc See Rx Instructions .ROUTE .MEDSUPPLY Qty: 1 0RF Rx Instructions: 3 times a day cholecalciferol (vitamin D3) 50 mcg (2,000 unit) capsule 50 mcg PO DAILY insulin glargine 100 unit/mL (3 mL) insulin pen 40 unit subcut QPM Qty: 15 6RF Xigduo XR 10-1,000 mg tablet, IR - ER, biphasic 24hr 1 tab PO DAILY Qty: 30 6RF Mounjaro 7.5 mg/0.5 mL pen injector 7.5 mg subcut QWEEK Qty: 6 3RF insulin aspart U-100 [Novolog FlexPen U-100 Insulin] 100 unit/mL (3 mL) insulin pen 8 - 14 unit subcut TID Qty: 30 6RF Rx Instructions: If BG 150-199 8 units If BG 200-249 10 units If BG 250-299 12 units If BG >/=300 14 units Print Language: Cymro
[2024-12-08 20:53] VITALS: BP 108/69; PULSE 62; RESP 16; TEMP 36.9; O2SAT 94
--- NOTE | 2024-12-08 23:05 | PC.NURSE ---
patient informed staff that he needs to go home. adolfo ambulated out of ED.
== END 2024-12-08 23:06 | disposition home or self-care (01) ==
PROVIDERS: Emergency Provider Emergency Medicine; PCP Internal Medicine
DX: S50.812A Abrasion of left forearm, initial encounter (principal); X58.XXXA Exposure to other specified factors, initial encounter; M79.632 Pain in left forearm; Y93.H2 Activity, gardening and landscaping; Y92.017 Garden or yard in single-family (private) house as the place of occurrence of the external cause; Y99.9 Unspecified external cause status
CPT/HCPCS: 73110; 99283; 99284

== ENCOUNTER → 2024-12-08 18:29 | Outpatient (BNV) | payer OTHER, SELFPAY | PROVIDERS: PCP Internal Medicine; Visit Provider Radiology Diagnostic Radiology | DX: M25.532 Pain in left wrist (principal) | CPT/HCPCS: 73110 ==

== ENCOUNTER 2024-12-27 08:23 | Outpatient (AMB) | payer OTHER, SELFPAY ==
--- NOTE | 2024-12-27 08:27 | MHC.OFFVIS ---
Vital Signs 12/27/24 08:28 Height 6 ft 2 in Weight 371 lb 7.662 oz BMI 47.7 BP 140/86 H Blood Pressure Location Lt brachial Position Sitting Pulse 67 Pulse Source Pulse Oximeter Pulse Oximetry (%) 67 L Oxygen Delivery Method Room Air Intake Visit Reasons: DM Intake Note: Patient present today for Diabetes Mellitus Management Last Diabetic Eye exam: Within the year, has yearly exam Last Podiatry Visit: Does not see a Traffic Survey Technician, requesting referral. Most Recent HgA1C: 7.6%, 11/15/2024 glucose: 185 mg/dl Glass Forming Crew Member Required: No Accompanied by: Self / Same As Patient Allergies ibuprofen [From MOTRIN] Allergy (Unknown, Verified 12/27/24 08:32) RECTAL BLEED topiramate [From TOPAMAX] Allergy (Unknown, Verified 12/27/24 08:32) RECTAL BLEED DAIRY PRODUCTS Allergy (Unknown, Uncoded 09/28/24 08:25) RECTAL BLEED AND SWELLING Wellbutrin Allergy (Unknown, Uncoded 09/28/24 08:25) unknown HPI Comments Details: Patient is 49yo with DM type 2 diagnosed 2017 who presents for follow up diabetes Past medical history: Obesity, depression, PTSD, hypothyroidism, GERD, neuropathy Diabetes medications: Xigduo 06/1000 mg XR daily. Lantus 38 units at bedtime, mounjaro 7.5mg weekly, Novolog <150 0 units, then sliding scale. Glucose is high when premeal is 100-150 and taking nothing on sliding scale. He didn't tolerate Trulicity 0.75 mg weekly, and Victoza daily due to diarrhea. The increased mounjaro is curbing appetite. 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 Drinking more coffee with splenda which negatively effects his glucose Last ophthalmology evaluation: Summer 2023 Family hx of mother and maternal grandparents Type 2 DM ROS CONSTITUTIONAL: Denies weight loss, fever and chills. HEENT: Denies changes in vision and hearing. RESPIRATORY: Denies SOB and cough. CV: Denies palpitations and CP GI: Denies abdominal pain, nausea, vomiting and diarrhea. : Denies dysuria and urinary frequency. MSK: Denies new myalgia and joint pain. SKIN: Denies rash and pruritus. NEUROLOGICAL: Denies headache PSYCHIATRIC: Denies recent changes in mood. PHYSICAL EXAM: GENERAL: Alert and oriented x 3. NAD EYES: EOMI. Anicteric. HENT: Moist mucous membranes. No scleral icterus. No cervical lymphadenopathy. LUNGS: Clear to auscultation bilaterally. CARDIOVASCULAR: Regular rate and rhythm. No murmur. No JVD. ABDOMEN: Soft, non-tender +bs EXTREMITIES: No edema. Non-tender. SKIN: No rashes or lesions. Warm. NEUROLOGIC: No focal neurological deficits. CN II-XII grossly intact PSYCHIATRIC: Cooperative. 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 Diabetes type 2, uncontrolled Surgical History Hx of knee surgery Hx of wisdom tooth extraction Hx of hand surgery Family History Father Cancer Mother Cancer Diabetes Social History Household Members: None Alcohol intake: former Patient Tobacco Use Status: Never used Tobacco Second Hand Smoke Exposure: Yes Physical Exam Vital Signs: Last Vital Signs Pulse 67 12/27/24 08:28 BP 140/86 H 12/27/24 08:28 Pulse Ox 67 L 12/27/24 08:28 Oxygen Delivery Method Room Air 12/27/24 08:28 BMI result Body Mass Index 47.7 Assessment & Plan Assessment & Plan (1) Diabetes type 2, uncontrolled: Code(s): E11.65 - Type 2 diabetes mellitus with hyperglycemia Category: Medical Qualifiers: Glycemic state: with hyperglycemia Qualified Code(s): E11.65 - Type 2 diabetes mellitus with hyperglycemia Plan: Stable blood glucose Still slightly suboptimal diabetic control He is working on cutting back on coffee. Will adjust sliding scale for improved coverage. Return in 2 months for A1C Medications: Changed From insulin aspart U-100 (Novolog FlexPen U-100 Insulin aspart) If BG 150-199 8 units If BG 200-249 10 units If BG 250-299 12 units If BG >/=300 14 units 8 - 14 units (0.08 - 0.14 mL) subcut TID 30 mL 6RF To insulin aspart U-100 (Novolog FlexPen U-100 Insulin aspart) If BG 100-149 8 units If BG 150-199 10 units If BG 200-249 12 units If BG 250-299 14 units If BG >/=300 16 units 8 - 14 units (0.08 - 0.14 mL) subcut TID 30 mL 6RF Coding Level of Care Code Est Pt Level 4 (02020) Diagnoses Uncontrolled type 2 diabetes mellitus with hyperglycemia E11.65 Glycemic state: with hyperglycemia
[2024-12-27 08:28] VITALS: BP 140/86; PULSE 67; O2SAT 67; BMI 47.7
[2024-12-27 08:42] LABS: Glucose, Whole Blood 185 mg/dL (60-115)
== END 2024-12-27 09:06 | disposition home or self-care (01) ==
LOC: HO.ENCR 08:26
PROVIDERS: PCP Internal Medicine; Visit Provider Internal Medicine
DX: E11.65 Type 2 diabetes mellitus with hyperglycemia (principal)

== ENCOUNTER → 2024-12-27 08:23 | Outpatient (BNVA) | payer OTHER, SELFPAY | PROVIDERS: PCP Internal Medicine; Visit Provider Internal Medicine | DX: E11.65 Type 2 diabetes mellitus with hyperglycemia (principal) | CPT/HCPCS: 82947; 99212 ==

== ENCOUNTER 2025-02-21 07:56 | Outpatient (AMB) | payer OTHER, SELFPAY ==
--- NOTE | 2025-02-21 08:06 | A.OFFVIS_ITS ---
Vital Signs 02/21/25 08:19 Height 6 ft 2 in Weight 372 lb 9.299 oz BMI 47.8 BP 130/88 Blood Pressure Location Rt brachial Position Sitting Pulse 92 Pulse Source Pulse Oximeter Pulse Oximetry (%) 97 Oxygen Delivery Method Room Air Intake Visit Reasons: A1C Intake Note: Patient presents today for a follow-up on Type 2 Diabetes Mellitus: Last Diabetic eye exam was on: DUE Last Podiatry exam was on: Patient does not see a Financial Planning Consultant Most recent HbA1c: 7.2%, 02/21/2025 Random Glucose: 208 mg/dL Printing Plate Clerk Required: No Accompanied by: Self / Same As Patient Allergies ibuprofen [From MOTRIN] Allergy (Unknown, Verified 02/21/25 08:07) RECTAL BLEED topiramate [From TOPAMAX] Allergy (Unknown, Verified 02/21/25 08:07) RECTAL BLEED DAIRY PRODUCTS Allergy (Unknown, Uncoded 02/21/25 08:07) RECTAL BLEED AND SWELLING Wellbutrin Allergy (Unknown, Uncoded 02/21/25 08:07) unknown HPI Comments Details: Patient is 49yo with DM type 2 diagnosed 2017 who presents for follow up diabetes Past medical history: Obesity, depression, PTSD, hypothyroidism, GERD, neuropathy Diabetes medications: Xigduo 06/1000 mg XR daily. Lantus 40 units at bedtime, mounjaro 7.5mg weekly, Novolog ss (increased last visit 2 months ago). He didn't tolerate Trulicity 0.75 mg weekly, and Victoza daily due to diarrhea. The increased mounjaro is curbing appetite. Weight is stable. Cut back caffeine a bunch. 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 Drinking more coffee with splenda which negatively effects his glucose Last ophthalmology evaluation: Summer 2023 Family hx of mother and maternal grandparents Type 2 DM ROS CONSTITUTIONAL: Denies weight loss, fever and chills. HEENT: Denies changes in vision and hearing. RESPIRATORY: Denies SOB and cough. CV: Denies palpitations and CP GI: Denies abdominal pain, nausea, vomiting and diarrhea. : Denies dysuria and urinary frequency. MSK: Denies new myalgia and joint pain. SKIN: Denies rash and pruritus. NEUROLOGICAL: Denies headache PSYCHIATRIC: Denies recent changes in mood. PHYSICAL EXAM: GENERAL: Alert and oriented x 3. NAD EYES: EOMI. Anicteric. HENT: Moist mucous membranes. No scleral icterus. No cervical lymphadenopathy. LUNGS: Clear to auscultation bilaterally. CARDIOVASCULAR: Regular rate and rhythm. No murmur. No JVD. ABDOMEN: Soft, non-tender +bs EXTREMITIES: No edema. Non-tender. SKIN: No rashes or lesions. Warm. NEUROLOGIC: No focal neurological deficits. CN II-XII grossly intact PSYCHIATRIC: Cooperative. 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 Diabetes type 2, uncontrolled Surgical History Hx of knee surgery Hx of wisdom tooth extraction Hx of hand surgery Family History Father Cancer Mother Cancer Diabetes Social History Household Members: None Alcohol intake: former Patient Tobacco Use Status: Never used Tobacco Second Hand Smoke Exposure: Yes Physical Exam Vital Signs: Last Vital Signs Pulse 92 02/21/25 08:19 BP 130/88 02/21/25 08:19 Pulse Ox 97 02/21/25 08:19 Oxygen Delivery Method Room Air 02/21/25 08:19 BMI result Body Mass Index 47.8 Results AMB Hemoglobin A1c AMB Hemoglobin A1c 7.2 % Last Edit by DEVIN Ng on 02/21/25 08:40 Assessment & Plan Assessment & Plan (1) Diabetes type 2, uncontrolled: Code(s): E11.65 - Type 2 diabetes mellitus with hyperglycemia Category: Medical Qualifiers: Glycemic state: with hyperglycemia Qualified Code(s): E11.65 - Type 2 diabetes mellitus with hyperglycemia Plan 50 year old male presenting for follow up Diabetes is overall improved control Will increase mounjaro to 10mg weekly. Continue 40u daily. Change novolog back to previous sliding. He will follow up in 3 months for follow up Orders: Orders AMB Hemoglobin A1c Today E11.65 - Type 2 diabetes mellitus with hyperglycemia Referrals Podiatry Referral E11.65 - Type 2 diabetes mellitus with hyperglycemia, M79.673 - Pain in unspecified foot Medications: New Mounjaro (tirzepatide) 10 mg (0.5 mL) subcut QWEEK 6 mL 3RF NS E11.65 - Type 2 diabetes mellitus with hyperglycemia Changed From insulin aspart U-100 (Novolog FlexPen U-100 Insulin aspart) If BG 100-149 8 units If BG 150-199 10 units If BG 200-249 12 units If BG 250-299 14 units If BG >/=300 16 units 8 - 14 units (0.08 - 0.14 mL) subcut TID 30 mL 6RF To insulin aspart U-100 (Novolog FlexPen U-100 Insulin aspart) If BG <150 0 units If BG 150-199 8 units If BG 200-249 10 units If BG 250-299 12 units If BG >/=300 14 units 8 - 14 units (0.08 - 0.14 mL) subcut TID 30 mL 6RF Discontinued tirzepatide (Mounjaro) Discontinued Reason: Doctor's Order 7.5 mg (0.5 mL) subcut QWEEK 6 mL 3RF E11.42 - Type 2 diabetes mellitus with diabetic polyneuropathy, E11.65 - Type 2 diabetes mellitus with hyperglycemia Coding Level of Care Code Est Pt Level 4 (08151) Diagnoses Uncontrolled type 2 diabetes mellitus with hyperglycemia E11.65 Glycemic state: with hyperglycemia
[2025-02-21 08:19] VITALS: BP 130/88; PULSE 92; O2SAT 97; BMI 47.8
[2025-02-21 08:35] LABS: Glucose, Whole Blood 208 mg/dL (60-115)
== END 2025-02-21 08:59 | disposition home or self-care (01) ==
LOC: HO.ENCR 07:57
PROVIDERS: PCP Internal Medicine; Visit Provider Internal Medicine
DX: E11.65 Type 2 diabetes mellitus with hyperglycemia (principal)

== ENCOUNTER → 2025-02-21 07:56 | Outpatient (BNVA) | payer OTHER, SELFPAY | PROVIDERS: PCP Internal Medicine; Visit Provider Internal Medicine | DX: E11.65 Type 2 diabetes mellitus with hyperglycemia (principal) | CPT/HCPCS: 82947; 83036; 99212 ==

== ENCOUNTER 2025-03-14 13:18 | Outpatient (AMB) | payer OTHER, SELFPAY ==
--- NOTE | 2025-03-14 14:15 | A.OFFVIS_ITS ---
Intake Intake Visit Reasons: 60 min Front Tender Required: No Accompanied by: Self / Same As Patient Allergies ibuprofen (From MOTRIN) Allergy (Unknown, Verified 02/21/25 08:07) RECTAL BLEED topiramate (From TOPAMAX) Allergy (Unknown, Verified 02/21/25 08:07) RECTAL BLEED DAIRY PRODUCTS Allergy (Unknown, Uncoded 02/21/25 08:07) RECTAL BLEED AND SWELLING Wellbutrin Allergy (Unknown, Uncoded 02/21/25 08:07) unknown [facility] Medical History (Updated 02/21/25 @ 08:56 by Missy Armando MD) GERD (gastroesophageal reflux disease) Schizoaffective disorder PTSD (post-traumatic stress disorder) Diabetic polyneuropathy associated with type 2 diabetes mellitus Hypertension Dyslipidemia Morbid obesity Vitamin D deficiency 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 Diabetes type 2, uncontrolled Surgical History Hx of knee surgery Hx of wisdom tooth extraction Hx of hand surgery Family History Father Cancer Mother Cancer Diabetes Social History Household Members: None Alcohol intake: former Patient Tobacco Use Status: Never used Tobacco Second Hand Smoke Exposure: Yes Assessment & Plan Assessment & Plan (1) Diabetes type 2, uncontrolled: Code(s): E11.65 - Type 2 diabetes mellitus with hyperglycemia Qualifiers: Glycemic state: with hyperglycemia Qualified Code(s): E11.65 - Type 2 diabetes mellitus with hyperglycemia Plan: Patient here to set up phone rikki for Aline 3+ on New cell phone Connected patient's Aline view account to clinic account Inserted Aline 3+ sensor in patient's upper right arm Patient now on Mounjaro 10 mg weekly Lantus 40 units daily NovoLog t.i.d. 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 He is feeling better mentally with this new job. Patient also reports he has increased low carb veggies and lean proteins, has stopped drinking caffeinated coffee Insulin/Injectables (If applicable) * Storage/care of insulin?? * Injection sites? * Site rotation? * Onset, peak, duration * Drawing up insulin? * Injecting insulin/other injectables? * Sharps disposalContinuous blood glucose monitoring (if applicable) Patient will follow-up with early childhood educator aide in 2 months Coding Level of Care Code Est Pt Level 1 (35172) Diagnoses Uncontrolled type 2 diabetes mellitus with hyperglycemia E11.65 Glycemic state: with hyperglycemia
== END 2025-03-14 14:22 | disposition home or self-care (01) ==
LOC: HO.ENCR 13:19
PROVIDERS: PCP Internal Medicine; Visit Provider Registered Nurse Diabetes Educator
DX: E11.65 Type 2 diabetes mellitus with hyperglycemia (principal)

== ENCOUNTER → 2025-03-14 13:18 | Outpatient (BNVA) | payer OTHER, SELFPAY | PROVIDERS: PCP Internal Medicine; Visit Provider Registered Nurse Diabetes Educator | DX: E11.65 Type 2 diabetes mellitus with hyperglycemia (principal) | CPT/HCPCS: 99211 ==

== ENCOUNTER 2025-03-29 09:39 | Outpatient (AMB) | payer OTHER, SELFPAY ==
--- OUTSIDE RECORDS SUMMARY | 2025-03-29 09:56 | XMS_ITS | Clinical Summary ---
Author Organization [address] [facility] Address [address] [place] [id number] Phone Care Team Providers Care Traffic Signal Technician Name Role Phone Physician, Pcp Unknown Primary Care Provider Martha vailable Social History Tobacco Use Types Packs/Day Years Used Date Smoking Tobacco: Never Assessed Sex and Gender Information Value Date Recorded Sex Assigned at Not on file Legal Sex Male 8:57 AM EDT Gender Identity Not on file Sexual Orientation Not on file Plan of Treatment Upcoming Encounters Date Type Department Care Team ([facility] Contact Info) Description 05/07/2025 8:15 AM EDT Consult Orthopedic Surgery - [place] [id number] [phone] Hal Mcclellan DPM [address] [address] Health Maintenance Due Date Last Done Comments Diabetes: Annual GFR (Glomer ular Filtration Rate) 1973 Diabetes: Annual Foot Exam 1983 Diabetes: Annual Retina Eye Exam 1983 DTaP,Tdap,and Td Vaccines (1 - Tdap) 02/17/1992 Hepatitis B Vaccines (1 of 3 - 19+ 3-dose series) 02/17/1992 Pneumococcal Vaccine: 50+ Ye ars (1 of 2 - PCV) 02/17/1992 Zoster Vaccines (1 of 2) 2023 COVID-19 Vaccine ( - 2023-2 5 season) 2024 Cholesterol Screening (Lipid Panel) 02/28/2025 Colorectal Cancer Screening: Colonoscopy 02/28/2025 Depression Screening 02/28/2025 Diabetes: Annual Urine Albumin-Creatinine Ratio (uACR) 02/28/2025 Diabetes: Blood Sugar Contro l Test (HGBA1C) 02/28/2025 HIV Screening 02/28/2025 Hepatitis C Screening 02/28/2025 Social Influencers of Health Screening 02/28/2025 Influenza Vaccine (#1) 2025 HIB Vaccines Aged Out No longer eligi ble based on patient's age to complete this topic HPV Vaccines Aged Out No longer eligi ble based on patient's age to complete this topic Hepatitis A Vaccines Aged Out No long er eligible based on patient's age to complete this topic IPV Vaccines Aged Out No longer eligi ble based on patient's age to complete this topic MMR Vaccines Aged Out No longer eligi ble based on patient's age to complete this topic Meningococcal ACWY Vaccine Aged Out N o longer eligible based on patient's age to complete this topic Meningococcal B Vaccine Aged Out No l onger eligible based on patient's age to complete this topic RSV Immunization Patients Un ling 20 months Aged Out No longer eligible b ased on patient's age to complete this topic Varicella Vaccines Aged Out No longer eligible based on patient's age to complete this topic Insurance MEDICAID - [place] Care Teams Traffic Signal Technician Relationship Specialty Start Date End Date Physician, Pcp Unknown PCP - General 02/28/25
[2025-03-29 10:19] VITALS: BMI 46.9
--- NOTE | 2025-03-29 10:19 | A.OFFVIS_ITS ---
VS Expanded 03/29/25 10:19 04/04/25 13:54 Height 6 ft 2 in 6 ft 2 in Weight 365 lb 4.895 oz 365 lb BMI 46.9 46.9 Intake Visit Reasons: T2DM Allergies ibuprofen (From MOTRIN) Allergy (Unknown, Verified 02/21/25 08:07) RECTAL BLEED topiramate (From TOPAMAX) Allergy (Unknown, Verified 02/21/25 08:07) RECTAL BLEED DAIRY PRODUCTS Allergy (Unknown, Uncoded 02/21/25 08:07) RECTAL BLEED AND SWELLING Wellbutrin Allergy (Unknown, Uncoded 02/21/25 08:07) unknown Nutrition Presentation Details: Pt presents for MNT f/u for T2DM Pt wants to resume working on meal planning and weight loss. He reports working on reducing on sugary beverages in the past month Pt reports typically eating out but wants to make meals at home typically B: breakfast sand (egg/ham/cheese) coffee L:fast food/diet soda D: fast food or pasta chicken or burger snack: donut Physical activity: ADL eoth/smokin-denies per BG record 14 d bg averages 181 mg/dl (Pt uses gluc sensor), highest bg after night meal/snack CMF-Ijrsgda-Ry.Jeor Equation Height: 6 ft 2 in Weight: 365 lb Resting Metabolic Rate: 2577.87 Calculated Activity Level: Sedentary Calories Needed to Maintain Weight: 3093.44 Diagnosis Nutrition problem #1: excessive energy intake and overweight/obesity As related to (etiology) #1: diagnosis [facility] Medical History (Updated 02/21/25 @ 08:56 by Missy Armando MD) GERD (gastroesophageal reflux disease) Schizoaffective disorder PTSD (post-traumatic stress disorder) Diabetic polyneuropathy associated with type 2 diabetes mellitus Hypertension Dyslipidemia Morbid obesity 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 deficiency 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 Diabetes type 2, uncontrolled Surgical History Hx of knee surgery Hx of wisdom tooth extraction Hx of hand surgery Family History Father Cancer Mother Cancer Diabetes Social History Household Members: None Alcohol intake: former Patient Tobacco Use Status: Never used Tobacco Second Hand Smoke Exposure: Yes Assessment & Plan Assessment & Plan (1) Diabetes type 2, uncontrolled: Code(s): E11.65 - Type 2 diabetes mellitus with hyperglycemia Category: Medical Qualifiers: Glycemic state: with hyperglycemia Qualified Code(s): E11.65 - Type 2 diabetes mellitus with hyperglycemia Plan: Wt: 166 Kg ( 04/06 ) Est kcal needs as per MSJ: 3100 (40% carb, 30% protein/fat) Est fluid needs as per 25-30 ml/d: 5000 Est prot per day as per 1 g/kg bw: 160 Recommend fiber intake : 8-10 g per day and gradually increase to 25-28 g per day for women and 35-38 g for men or as tolerated Recommend sodium intake per day: less than 2300 mg Educated patient on: ( R = reviewed V = verbalizes understanding N/R = needs review N/A = not applicable * Food sources of carbohydrate, adequate serving sizes and its role in various health conditions: R * Differences between complex carbohydrates a simple carbohydrates, role of fiber in diet: R * Lean protein sources of foods: R * Differences between types of fats and role in diet (mono on saturated fat fatty acids, saturated fatty acids, trans fats): R V N/R * Food sources of sodium in salt and healthy modifications for heart health in kidney health: R V R/V * Vitamins and minerals: R V N/R * Healthy plate method concept: R * Physical activity: Benefits a precaution: R * Hypoglycemia protocol (rule of 15): R V N/R * Dietary prevention of Hyperglycemia: R Patient Instructions: Chose lower calorie/carb options as your night meal :Have meal replacement Choose lower fat starches : baked potato or sweet potato in place of fried Coding Level of Care Code Nutr Indiv Subseq (47008) Diagnoses Uncontrolled type 2 diabetes mellitus with hyperglycemia E11.65 Glycemic state: with hyperglycemia Time Spent (min) 20
[2025-04-04 13:54] VITALS: BMI 46.9
== END 2025-03-29 10:44 | disposition home or self-care (01) ==
LOC: HO.ENCR 09:39
PROVIDERS: PCP Internal Medicine; Visit Provider Dietitian, Registered
DX: E11.65 Type 2 diabetes mellitus with hyperglycemia (principal)

== ENCOUNTER → 2025-03-29 09:39 | Outpatient (BNVA) | payer OTHER, SELFPAY | PROVIDERS: PCP Internal Medicine; Visit Provider Dietitian, Registered | DX: E11.65 Type 2 diabetes mellitus with hyperglycemia (principal) | CPT/HCPCS: 97803 ==

== ENCOUNTER 2025-04-18 11:18 | Outpatient (AMB) | payer OTHER, SELFPAY ==
[2025-04-18 11:23] VITALS: BP 118/82; PULSE 85; O2SAT 98; BMI 48.1
--- NOTE | 2025-04-18 11:23 | A.OFFVIS_ITS ---
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 Accompanied by: Self / Same As Patient Allergies ibuprofen (From MOTRIN) Allergy (Unknown, Verified 04/18/25 11:27) RECTAL BLEED topiramate (From TOPAMAX) Allergy (Unknown, Verified 04/18/25 11:27) RECTAL BLEED DAIRY PRODUCTS Allergy (Unknown, Uncoded 04/18/25 11:27) RECTAL BLEED AND SWELLING Wellbutrin Allergy (Unknown, Uncoded 04/18/25 11:27) unknown HPI Comments Details: Patient is 49yo with DM type 2 diagnosed 2017 who presents for follow up diabetes Past medical history: Obesity, depression, PTSD, hypothyroidism, GERD, neuropathy Diabetes medications: Xigduo 06/1000 mg XR daily Lantus 40 units at bedtime Mounjaro 10mg weekly, Novolog ss He didn't tolerate Trulicity 0.75 mg weekly, and Victoza daily due to diarrhea. Blood glucose monitoring: Aline - GMI 7.8--patient reports frustration with having to being novolog to work. He needs a traditional glucometer for checking glucose. Reports that since cutting out coffee his appetite has been less well controlled. 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 Last ophthalmology evaluation: Summer 2023 Family hx of mother and maternal grandparents Type 2 DM ROS CONSTITUTIONAL: Denies weight loss, fever and chills. HEENT: Denies changes in vision and hearing. RESPIRATORY: Denies SOB and cough. CV: Denies palpitations and CP GI: Denies abdominal pain, nausea, vomiting and diarrhea. : Denies dysuria and urinary frequency. MSK: Denies new myalgia and joint pain. SKIN: Denies rash and pruritus. NEUROLOGICAL: Denies headache PSYCHIATRIC: Depression, frstration PHYSICAL EXAM: GENERAL: Alert and oriented x 3. NAD EYES: EOMI. Anicteric. HENT: Moist mucous membranes. No scleral icterus. No cervical lymphadenopathy. LUNGS: Clear to auscultation bilaterally. CARDIOVASCULAR: Regular rate and rhythm. No murmur. No JVD. ABDOMEN: Soft, non-tender +bs EXTREMITIES: No edema. Non-tender. SKIN: No rashes or lesions. Warm. NEUROLOGIC: No focal neurological deficits. CN II-XII grossly intact PSYCHIATRIC: Cooperative. Appropriate mood and affect [facility] Medical History GERD (gastroesophageal reflux disease) Schizoaffective disorder PTSD (post-traumatic stress disorder) Diabetic polyneuropathy associated with type 2 diabetes mellitus Hypertension Dyslipidemia Morbid obesity Vitamin D deficiency [facility] (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 Diabetes type 2, uncontrolled Surgical History Hx of knee surgery Hx of wisdom tooth extraction Hx of hand surgery Family History Father Cancer Mother Cancer Diabetes Social History Household Members: None Alcohol intake: former Patient Tobacco Use Status: Never used Tobacco Second Hand Smoke Exposure: Yes Physical Exam Vital Signs: Last Vital Signs Pulse 85 04/18/25 11:23 BP 118/82 04/18/25 11:23 Pulse Ox 98 04/18/25 11:23 Oxygen Delivery Method Room Air 04/18/25 11:23 BMI result Body Mass Index 48.1 Results Reviewed Results Reviewed: Laboratory Last Values Glucose (Clinic) 238 mg/dL (60-115) H 04/18/25 11:28 Assessment & Plan Assessment & Plan (1) Diabetes type 2, uncontrolled: Code(s): E11.65 - Type 2 diabetes mellitus with hyperglycemia Category: Medical Qualifiers: Glycemic state: with hyperglycemia Qualified Code(s): E11.65 - Type 2 diabetes mellitus with hyperglycemia (2) [facility] (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: Code(s): 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 Category: Medical Plan 50 year old for diabetic follow up Diabetic control is slightly worse stop xiduo 06/1000 start 01/1000 x 2 daily Return in one month Medications: New OneTouch Verio test strips (blood sugar diagnostic) four times daily 400 ea 3RF NS E11.65 - Type 2 diabetes mellitus with hyperglycemia, 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 OneTouch Verio Flex meter (blood-glucose meter) As directed 1 ea 0RF NS E11.65 - Type 2 diabetes mellitus with hyperglycemia, 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 lancets As directed 400 ea 3RF NS E11.65 - Type 2 diabetes mellitus with hyperglycemia, Z79.4 - [facility] (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 Xigduo XR 5-1,000 mg (dapaglifloz propaned-metformin) 2 tabs (2 x 5-1,000 mg) PO DAILY 180 ea 3RF NS Discontinued dapaglifloz propaned-metformin 10-1,000 mg ER (Xigduo XR) Discontinued Reason: Doctor's Order 1 tab PO DAILY 30 tabs 6RF E11.65 - Type 2 diabetes mellitus with hyperglycemia Coding Level of Care Code Est Pt Level 4 (17425) Diagnoses Uncontrolled type 2 diabetes mellitus with hyperglycemia E11.65 Glycemic state: with hyperglycemia [facility] (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 Z79.4
[2025-04-18 11:32] LABS: Glucose, Whole Blood 238 mg/dL (60-115)
--- OUTSIDE RECORDS SUMMARY | 2025-04-18 12:05 | XMS_ITS | Clinical Summary ---
Author Organization [address] [place] [address] Address [address] [place] [address] Phone Care Team Providers Care Cath Lab Nurse Name Role Phone Physician, Pcp Unknown Primary Care Provider Martha vailable Social History Tobacco Use Types Packs/Day Years Used Date Smoking Tobacco: Never Assessed Sex and Gender Information Value Date Recorded Sex Assigned at Not on file Legal Sex Male 8:57 AM EDT Gender Identity Not on file Sexual Orientation Not on file Plan of Treatment Upcoming Encounters Date Type Department Care Team ([facility] Contact Info) Description 05/07/2025 8:15 AM EDT Consult Orthopedic Surgery - [place] [id number] [address] Hal Mcclellan DPM [address] [address] Health Maintenance Due Date Last Done Comments [...] Vaccine ( - 2023-2 5 season) 2024 Depression Screening 09/13/2024 Cholesterol Screening (Lipid Panel) 02/28/2025 Colorectal Cancer Screening: Colonoscopy 02/28/2025 Diabetes: Annual Urine Albumin-Creatinine Ratio (uACR) [...] topic Insurance MEDICAID - [place] Care Teams Cath Lab Nurse Relationship Specialty Start Date End Date Physician, Pcp Unknown PCP - General 02/28/25
== END 2025-04-18 11:56 | disposition home or self-care (01) ==
LOC: HO.ENCR 11:19
PROVIDERS: PCP Internal Medicine; Visit Provider Internal Medicine
DX: E11.65 Type 2 diabetes mellitus with hyperglycemia (principal); Z79.4 Long term (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

== ENCOUNTER → 2025-04-18 11:18 | Outpatient (BNVA) | payer OTHER, SELFPAY | PROVIDERS: PCP Internal Medicine; Visit Provider Internal Medicine | DX: E11.65 Type 2 diabetes mellitus with hyperglycemia (principal); E11.42 Type 2 diabetes mellitus with diabetic polyneuropathy; Z79.4 Long term (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 | CPT/HCPCS: 82947; 99212 ==

== ENCOUNTER 2025-04-25 08:59 | Outpatient (AMB) | payer OTHER, SELFPAY ==
--- NOTE | 2025-04-25 09:21 | MHC.AMDMED ---
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 Accompanied by: Self / Same As Patient Allergies ibuprofen (From MOTRIN) Allergy (Unknown, Verified 04/18/25 11:27) RECTAL BLEED topiramate (From TOPAMAX) Allergy (Unknown, Verified 04/18/25 11:27) RECTAL BLEED DAIRY PRODUCTS Allergy (Unknown, Uncoded 04/18/25 11:27) RECTAL BLEED AND SWELLING Wellbutrin Allergy (Unknown, Uncoded 04/18/25 11:27) unknown HPI Comprehensive Diabetes Asmnt Most Recent Diabetes Results: Microalb/Creat Ratio TNP 09/20/24 Cholesterol, (<200) 130 mg/dL 09/20/24 HDL Cholesterol, (>40) 48 mg/dL 09/20/24 Triglycerides, (<150) 98 mg/dL 09/20/24 Creatinine, (0.5-1.4) 1.08 mg/dL 09/20/24 BUN, (9-16) 17 mg/dL H 09/20/24 Sodium, (135-145) 143 mmol/L 09/20/24 Potassium, (3.3-5.1) 4.1 mmol/L 09/20/24 Chloride, (96-108) 105 mmol/L 09/20/24 Carbon Dioxide, (22-29) 33 mmol/L H 09/20/24 Calcium, (8.4-10.2) 9.3 mg/dL 09/20/24 AST, (5-37) 26 U/L 03/01/21 ALT, (0-40) 34 U/L 03/01/21 Total Protein, (6.5-8.0) 6.9 g/dL 03/01/21 Albumin, (3.5-5.0) 4.3 g/dL 03/01/21 [facility] Medical History GERD (gastroesophageal reflux disease) Schizoaffective disorder PTSD (post-traumatic stress disorder) Diabetic polyneuropathy associated with type 2 diabetes mellitus Hypertension Dyslipidemia Morbid obesity Vitamin D deficiency 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 Diabetes type 2, uncontrolled Surgical History Hx of knee surgery Hx of wisdom tooth extraction Hx of hand surgery Family History Father Cancer Mother Cancer Diabetes Social History Household Members: None Alcohol intake: former Patient Tobacco Use Status: Never used Tobacco Second Hand Smoke Exposure: Yes Assessment & Plan Assessment & Plan (1) Diabetes type 2, uncontrolled: Code(s): E11.65 - Type 2 diabetes mellitus with hyperglycemia Qualifiers: Glycemic state: with hyperglycemia Qualified Code(s): E11.65 - Type 2 diabetes mellitus with hyperglycemia Plan: Personal Continuous Glucose Monitor: [employer] User Name:[email or web address] Password:[email or web address] Patients CGM information reviewed, Pt uses [employer] with phone rikki Pt logged out of phone rikki by accident, was here to for assistance to get back in to rikki. patient's [employer] view account and password noted above Patient concerns that he has stopped feeling symptoms of hypoglycemia. Patient concerned that he is not experiencing symptoms of hypoglycemia when getting an alert from sensor. Recommended to patient he verify hypoglycemia with fingerstick, if glucose is under 70 mg/dL even without symptoms treat as instructed below Hypoglycemia or blood glucose under 70 mg/dL use the rule of 15's: If you have your blood glucose meter test your blood glucose, if you do not have your meter still follow below instruction: Keep quick-sugar foods with you at all times.? Take 15 grams of fast acting carbohydrates. Examples are 4 ounces of fruit juice or regular soda pop, 8 ounces fat-free milk, 1 tablespoon of table sugar, honey or corn syrup, jam, one miniature box of raisins, 7-8 gumdrops or Life Savers candy, 4 glucose tablets, and glucose gel.? Retest blood glucose in 15 minutes, if blood glucose is still under 80 mg/dL,repeat rule of 15's. If blood glucose is under 50, take 30 grams of fast acting carbohydrates Hypoglycemic handout given to patient If you are having hypoglycemia, or insulin reaction, more that a few times a week, call MD or asthma educator Reviewed how to interpret trend arrows Reminded patient that to check finger sticks if symptoms do not match sensor reading. Discussed lag time between finger stick and sensor data.? Patient able to insert sensor independently at home without issue.? Portions of this note were created using voice recognition software, please excuse any words or phrases that may have been misinterpreted. Coding Level of Care Code Est Pt Level 1 (57738) Diagnoses Uncontrolled type 2 diabetes mellitus with hyperglycemia E11.65 Glycemic state: with hyperglycemia
--- OUTSIDE RECORDS SUMMARY | 2025-04-25 09:21 | XMS_ITS | Clinical Summary ---
Author Organization [address] [facility] Address [address] [place] [address] Phone Care Team Providers Care Platen Press Operator Name Role Phone Physician, Pcp Unknown Primary Care Provider Martha vailable Social History Tobacco Use Types Packs/Day Years Used Date Smoking Tobacco: Never Assessed Sex and Gender Information Value Date Recorded Sex Assigned at Not on file Legal Sex Male 8:57 AM EDT Gender Identity Not on file Sexual Orientation Not on file Plan of Treatment Upcoming Encounters Date Type Department Care Team ([facility] Contact Info) Description 05/07/2025 8:15 AM EDT Consult Orthopedic Surgery - [place] [address] [address] Hal Mcclellan DPM [address] [address] Health Maintenance Due Date Last Done Comments [...] topic Insurance MEDICA[place] - [place] Care Teams Platen Press Operator Relationship Specialty Start Date End Date Physician, Pcp Unknown PCP - General 02/28/25
== END 2025-04-25 09:45 | disposition home or self-care (01) ==
LOC: HO.ENCR 09:00
PROVIDERS: PCP Internal Medicine; Visit Provider Registered Nurse Diabetes Educator
DX: E11.65 Type 2 diabetes mellitus with hyperglycemia (principal)

== ENCOUNTER → 2025-04-25 08:59 | Outpatient (BNVA) | payer OTHER, SELFPAY | PROVIDERS: PCP Internal Medicine; Visit Provider Registered Nurse Diabetes Educator | DX: E11.65 Type 2 diabetes mellitus with hyperglycemia (principal) | CPT/HCPCS: 99211 ==

== ENCOUNTER 2025-05-28 08:29 | Outpatient (AMB) | payer OTHER, SELFPAY ==
--- NOTE | 2025-05-28 09:11 | A.OFFVIS_ITS ---
Intake Visit Reasons: T2DM Allergies ibuprofen (From MOTRIN) Allergy (Unknown, Verified 04/18/25 11:27) RECTAL BLEED topiramate (From TOPAMAX) Allergy (Unknown, Verified 04/18/25 11:27) RECTAL BLEED DAIRY PRODUCTS Allergy (Unknown, Uncoded 04/18/25 11:27) RECTAL BLEED AND SWELLING Wellbutrin Allergy (Unknown, Uncoded 04/18/25 11:27) unknown Nutrition Presentation Details: Pt presents for MNT f/u for T2DM Pt reports not making dietary modifications, did not want to get weighed today. He reports interest in restarting to work on diet modifications, reducing on empty calorie foods Reports choosing fast foods meals however reports having a cooler and reports willingness to make and bring own lunch Pt reports he may have a dental cavity and will make an appt with dentist today Cannot tolerate dairy and enjoys almond milk PFSH Medical History GERD (gastroesophageal reflux disease) Schizoaffective disorder PTSD (post-traumatic stress disorder) Diabetic polyneuropathy associated with type 2 diabetes mellitus Hypertension Dyslipidemia Morbid obesity Vitamin D deficiency [facility] (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 Diabetes type 2, uncontrolled Surgical History Hx of knee surgery Hx of wisdom tooth extraction Hx of hand surgery Family History Father Cancer Mother Cancer Diabetes Social History Household Members: None Alcohol intake: former Patient Tobacco Use Status: Never used Tobacco Second Hand Smoke Exposure: Yes Assessment & Plan Assessment & Plan (1) Diabetes type 2, uncontrolled: Code(s): E11.65 - Type 2 diabetes mellitus with hyperglycemia Category: Medical Qualifiers: Glycemic state: with hyperglycemia Qualified Code(s): E11.65 - Type 2 diabetes mellitus with hyperglycemia Plan: Wt: 166 Kg ( 04/06 ) refused wt gain - 06/07 Est kcal needs as per MSJ: 3100 (40% carb, 30% protein/fat) Est fluid needs as per 25-30 ml/d: 5000 Est prot per day as per 1 g/kg bw: 160 Recommend fiber intake : 8-10 g per day and gradually increase to 25-28 g per day for women and 35-38 g for men or as tolerated Recommend sodium intake per day: less than 2300 mg Educated patient on: ( R = reviewed V = verbalizes understanding N/R = needs review N/A = not applicable * Food sources of carbohydrate, adequate serving sizes and its role in various health conditions: R * Differences between complex carbohydrates a simple carbohydrates, role of fiber in diet: R * Lean protein sources of foods: R * Differences between types of fats and role in diet (mono on saturated fat fatty acids, saturated fatty acids, trans fats): R V N/R * Food sources of sodium in salt and healthy modifications for heart health in kidney health: R V R/V * Vitamins and minerals: R V N/R * Healthy plate method concept: R * Physical activity: Benefits a precaution: R * Hypoglycemia protocol (rule of 15): R V N/R * Dietary prevention of Hyperglycemia: R Patient Instructions: Make own lunch at least 3 times/wk (sandwich on whole grain - chicken/tuna/lettuce tomato, fruits, small bag popcorn (lower calorie options) Try fruit/vegetable smoothie at bedtime snack (2 vegetables/1 fruit/amond milk) Coding Level of Care Code Nutr Indiv Subseq (37806) Diagnoses Uncontrolled type 2 diabetes mellitus with hyperglycemia E11.65 Glycemic state: with hyperglycemia Time Spent (min) 30
--- OUTSIDE RECORDS SUMMARY | 2025-05-28 09:33 | XMS_ITS | Clinical Summary ---
Author Organization [address] [place] [address] Address [address] [place] [address] Phone Care Team Providers Care Rotoprinter Name Role Phone Physician, Pcp Unknown Primary Care Provider Martha vailable Allergies No known active allergies Medications tolnaftate (Tinactin) 1 % spray Apply topically 2 (two) times a day. 130 g 5 06/06/20 25 Active mupirocin (BACTROBAN) 2 % ointment Apply topically 1 (one) time each day for 10 days. 22 g 5 05/17/20 25 Encounters Date Type Department Care Team Description 05/07/2025 8:15 AM EDT Consult Orthopedic Surgery [address] [address] Hal Mcclellan DPM Traumatic avulsion of nail plate of toe, initial encounter (Primary Dx); Controlled type 2 diabetes with neuropathy (CMS/HCC V24, CMS/HCC V28); Pain in toes of both feet; Arthritis of both feet; Tinea pedis of both feet; Dermatophytosis, nail from Last 3 Months Social History Tobacco Use Types Packs/Day Years Used Date Smoking Tobacco: Never Assessed Sex and Gender Information Value Date Recorded Sex Assigned at Not on file Legal Sex Male 8:57 AM EDT Gender Identity Not on file Sexual Orientation Not on file Plan of Treatment Upcoming Encounters Date Type Department Care Team ([facility] Contact Info) Description 07/09/2025 8:15 AM EDT Office Visit Orthopedic [place] [id number] [id number] Hal Mcclellan DPM [address] [address] Health Maintenance Due Date Last Done Comments Diabetes: Annual GFR (Glomerular Filtration Rate) 1973 Diabetes: Annual Foot Exam 1983 Diabetes: Annual Retina Eye Exam 1983 Hepatitis A Vaccines (1 of 2 - Risk 2-dose series) 02/17/1992 Hepatitis B Vaccines (3 of 3 - 19+ 3-dose series) 01/11/2017 11/16/2016, 09/24/2011 Depression Screening 09/13/2024 Cholesterol Screening (Lipid Panel) 02/28/2025 Colorectal Cancer Screening: Colonoscopy 02/28/2025 Diabetes: Annual Urine Albumin-Creatinine Ratio (uACR) 02/28/2025 Diabetes: Blood Sugar Control Test (HGBA1C) 02/28/2025 HIV Screening 02/28/2025 Hepatitis C Screening 02/28/2025 Social Influencers of Health Screening 02/28/2025 Hypertension/CHF/CAD Annual BMP Blood Test 05/07/2025 Influenza Vaccine (#1) 2025 , 07/23/2023, 06/24/2022, Additional history exists DTaP,Tdap,and Td Vaccines (5 - Td or Tdap) 10/05/2034 10/05/2024, 06/24/2024, 02/12/2020, Additional history exists Pneumococcal Vaccine: 50+ Years Completed 05/20/2023, 09/01/2017, 11/16/2016 Zoster Vaccines Completed 08/20/2023, 05/24/2023 COVID-19 Vaccine Completed 05/17/2024, 01/2023, 09/17/2021, Additional history exists HIB Vaccines Aged Out No longer eligi [...] to complete this topic RSV Immunization Patients Under 20 months Aged Out No longer eligible based on patient's age to complete this topic Varicella Vaccines Aged Out No longer eligible based on patient's age to complete this topic Insurance [place] - [place] [facility] MEDICAID Care Teams Rotoprinter Relationship Specialty Start Date End Date Physician, Pcp Unknown PCP - General 02/28/25
== END 2025-05-28 09:44 | disposition home or self-care (01) ==
LOC: HO.ENCR 08:30
PROVIDERS: PCP Internal Medicine; Visit Provider Dietitian, Registered
DX: E11.65 Type 2 diabetes mellitus with hyperglycemia (principal)

== ENCOUNTER → 2025-05-28 08:29 | Outpatient (BNVA) | payer OTHER, SELFPAY | PROVIDERS: PCP Internal Medicine; Visit Provider Dietitian, Registered | DX: E11.65 Type 2 diabetes mellitus with hyperglycemia (principal) | CPT/HCPCS: 97803 ==

== ENCOUNTER 2025-05-29 08:06 | Outpatient (AMB) | payer OTHER, SELFPAY ==
--- NOTE | 2025-05-29 08:52 | A.OFFVIS_ITS ---
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: No Accompanied by: Self / Same As Patient Allergies ibuprofen (From MOTRIN) Allergy (Unknown, Verified 04/18/25 11:27) RECTAL BLEED topiramate (From TOPAMAX) Allergy (Unknown, Verified 04/18/25 11:27) RECTAL BLEED DAIRY PRODUCTS Allergy (Unknown, Uncoded 04/18/25 11:27) RECTAL BLEED AND SWELLING Wellbutrin Allergy (Unknown, Uncoded 04/18/25 11:27) unknown HPI Comprehensive Diabetes Asmnt Most Recent Diabetes Results: 2 Microalb/Creat Ratio TNP 09/20/24 Cholesterol, (<200) 130 mg/dL 09/20/24 HDL Cholesterol, (>40) 48 mg/dL 09/20/24 Triglycerides, (<150) 98 mg/dL 09/20/24 Creatinine, (0.5-1.4) 1.08 mg/dL 09/20/24 BUN, (9-16) 17 mg/dL H 09/20/24 Sodium, (135-145) 143 mmol/L 09/20/24 Potassium, (3.3-5.1) 4.1 mmol/L 09/20/24 Chloride, (96-108) 105 mmol/L 09/20/24 Carbon Dioxide, (22-29) 33 mmol/L H 09/20/24 Calcium, (8.4-10.2) 9.3 mg/dL 09/20/24 AST, (5-37) 26 U/L 03/01/21 ALT, (0-40) 34 U/L 03/01/21 Total Protein, (6.5-8.0) 6.9 g/dL 03/01/21 Albumin, (3.5-5.0) 4.3 g/dL 03/01/21 [facility] Medical History GERD (gastroesophageal reflux disease) Schizoaffective disorder PTSD (post-traumatic stress disorder) Diabetic polyneuropathy associated with type 2 diabetes mellitus Hypertension Dyslipidemia Morbid obesity Vitamin D deficiency 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 Diabetes type 2, uncontrolled Surgical History Hx of knee surgery Hx of wisdom tooth extraction Hx of hand surgery Family History Father Cancer Mother Cancer Diabetes Social History Household Members: None Alcohol intake: former Patient Tobacco Use Status: Never used Tobacco Second Hand Smoke Exposure: Yes Assessment & Plan Assessment & Plan (1) Diabetes type 2, uncontrolled: Code(s): E11.65 - Type 2 diabetes mellitus with hyperglycemia Qualifiers: Glycemic state: with hyperglycemia Qualified Code(s): E11.65 - Type 2 diabetes mellitus with hyperglycemia Plan: Personal Cntinuous Glucose Monitor: Patients CGM information reviewed, Pt uses [employer] with phone rikki Pt has been on antiboitics for tooth infection. He was seen by RD on 05/28/25, reports that he has made changes to his meal planning. Discussed with ?the effects that infection and stress can have on glucose numbers. Patient able to insert sensor independently at home without issue.? Portions of this note were created using voice recognition software, please excuse any words or phrases that may have been misinterpreted. Patient Instructions: Follow-up with dentist regarding infection Follow-up with physical therapy supervisor 1 months Coding Level of Care Code Est Pt Level 1 (96510) Diagnoses Uncontrolled type 2 diabetes mellitus with hyperglycemia E11.65 Glycemic state: with hyperglycemia
== END 2025-05-29 08:55 | disposition home or self-care (01) ==
LOC: HO.ENCR 08:06
PROVIDERS: PCP Internal Medicine; Visit Provider Registered Nurse Diabetes Educator
DX: E11.65 Type 2 diabetes mellitus with hyperglycemia (principal)

== ENCOUNTER → 2025-05-29 08:06 | Outpatient (BNVA) | payer OTHER, SELFPAY | PROVIDERS: PCP Internal Medicine; Visit Provider Registered Nurse Diabetes Educator | DX: E11.65 Type 2 diabetes mellitus with hyperglycemia (principal) | CPT/HCPCS: 99211 ==

== ENCOUNTER 2025-06-06 08:13 | Outpatient (AMB) | payer OTHER, SELFPAY ==
--- NOTE | 2025-06-06 08:22 | A.OFFVIS_ITS ---
Vital Signs 06/06/25 08:32 Height 6 ft 2 in Weight 369 lb 6.025 oz BMI 47.4 BP 130/80 Blood Pressure Location Rt brachial Position Sitting Pulse 65 Pulse Source Pulse Oximeter Pulse Oximetry (%) 92 Oxygen Delivery Method Room Air Intake Visit Reasons: DM Intake Note: Patient presents today for a follow-up on Type 2 Diabetes Mellitus: Last Diabetic eye exam was on: 05/01/2025, [facility]: No Diabetic Retinophaty Last Podiatry exam was on: 05/07/2025, DR. Mcclellan at [place] Most recent HbA1c: 8.0%, 06/06/2025 Random Glucose: 134 mg/dL Opto Mechanical Engineer Required: No Accompanied by: Self / Same As Patient Allergies ibuprofen (From MOTRIN) Allergy (Unknown, Verified 06/06/25 08:23) RECTAL BLEED topiramate (From TOPAMAX) Allergy (Unknown, Verified 06/06/25 08:23) RECTAL BLEED DAIRY PRODUCTS Allergy (Unknown, Uncoded 06/06/25 08:23) RECTAL BLEED AND SWELLING Wellbutrin Allergy (Unknown, Uncoded 06/06/25 08:23) unknown Medication List - Last Reconciled 06/06/25 by Missy Armando MD atorvastatin 10 mg PO BEDTIME 30 days cholecalciferol (vitamin D3) 50 mcg PO DAILY clonazepam 0.5 mg PO BID FreeStyle Aline 3 Stamping Ground (blood-glucose,chassis engineer,cont) As directed NS FreeStyle Aline 3 Sensor (blood-glucose sensor) every 14 days NS gabapentin 300 mg PO insulin aspart U-100 (Novolog FlexPen U-100 Insulin aspart) 8 - 14 units (0.08 - 0.14 mL) subcut TID insulin glargine 40 units (0.4 mL) subcut QPM levothyroxine 137 mcg PO Mounjaro (tirzepatide) 10 mg (0.5 mL) subcut QWEEK NS omeprazole 40 mg PO OneTouch Delica Plus Lancet (lancets) four times daily NS OneTouch Delica Plus Lancet (lancets) four times daily NS OneTouch Verio Flex meter (blood-glucose meter) As directed NS OneTouch Verio test strips (blood sugar diagnostic) four times daily NS paliperidone ER 9 mg PO pen needle, diabetic 4 times a day valsartan 320 mg PO Xigduo XR 5-1,000 mg (dapaglifloz propaned-metformin) 2 tabs (2 x 5-1,000 mg) PO DAILY NS HPI Comments Details: Patient is 49yo with DM type 2 diagnosed 2017 who presents for follow up diabetes Past medical history: Obesity, depression, PTSD, hypothyroidism, GERD, neuropathy Diabetes medications: Xigduo 06/1000 mg XR twice daily. Has been frequently missing the second dose. Lantus 40 units at bedtime Mounjaro 10mg weekly, Novolog ss-is having trouble with the frequent injections of short acting insulin, bruising He didn't tolerate Trulicity 0.75 mg weekly, and Victoza daily due to diarrhea. 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 Last ophthalmology evaluation: updated Recently saw podiatry Family hx of mother and maternal grandparents Type 2 DM ROS CONSTITUTIONAL: Denies weight loss, fever and chills. HEENT: Denies changes in vision and hearing. RESPIRATORY: Denies SOB and cough. CV: Denies palpitations and CP GI: Denies abdominal pain, nausea, vomiting and diarrhea. : Denies dysuria and urinary frequency. MSK: Denies new myalgia and joint pain. SKIN: Denies rash and pruritus. NEUROLOGICAL: Denies headache PSYCHIATRIC: Depression, frstration PHYSICAL EXAM: GENERAL: Alert and oriented x 3. NAD EYES: EOMI. Anicteric. HENT: Moist mucous membranes. No scleral icterus. No cervical lymphadenopathy. LUNGS: Clear to auscultation bilaterally. CARDIOVASCULAR: Regular rate and rhythm. No murmur. No JVD. ABDOMEN: Soft, non-tender +bs EXTREMITIES: No edema. Non-tender. SKIN: No rashes or lesions. Warm. NEUROLOGIC: No focal neurological deficits. CN II-XII grossly intact PSYCHIATRIC: Cooperative. Appropriate mood and affect [facility] Medical History GERD (gastroesophageal reflux disease) Schizoaffective disorder PTSD (post-traumatic stress disorder) Diabetic polyneuropathy associated with type 2 diabetes mellitus Hypertension Dyslipidemia Morbid obesity Vitamin D deficiency prison (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 Diabetes type 2, uncontrolled Surgical History Hx of knee surgery Hx of wisdom tooth extraction Hx of hand surgery Family History Father Cancer Mother Cancer Diabetes Social History Household Members: None Alcohol intake: former Patient Tobacco Use Status: Never used Tobacco Second Hand Smoke Exposure: Yes Physical Exam Vital Signs: Last Vital Signs Pulse 65 06/06/25 08:32 BP 130/80 06/06/25 08:32 Pulse Ox 92 06/06/25 08:32 Oxygen Delivery Method Room Air 06/06/25 08:32 BMI result Body Mass Index 47.4 Results AMB Hemoglobin A1c AMB Hemoglobin A1c 8.0 % Last Edit by DEVIN Ng on 06/06/25 08:46 Assessment & Plan Assessment & Plan (1) Diabetes type 2, uncontrolled: Code(s): E11.65 - Type 2 diabetes mellitus with hyperglycemia Category: Medical Qualifiers: Glycemic state: with hyperglycemia Qualified Code(s): E11.65 - Type 2 diabetes mellitus with hyperglycemia (2) prison (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: Code(s): 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 Increase mounjaro to 15 units daily. Increase lantus to 50 units as he wants a break from novolog at least temporarily. Make sure getting second dose of xigduo did discuss he could take both pills at once Htn -adequately controlled on ARB. continues statin Return in 3 months or sooner as needed Orders: Orders AMB Hemoglobin A1c Today E11.65 - Type 2 diabetes mellitus with hyperglycemia Medications: New Mounjaro (tirzepatide) 15 mg (0.5 mL) subcut QWEEK 6 mL 3RF NS Changed From insulin glargine 40 units (0.4 mL) subcut QPM 15 mL 6RF E11.65 - Type 2 diabetes mellitus with hyperglycemia To insulin glargine 50 units (0.5 mL) subcut QPM 30 mL 6RF E11.65 - Type 2 diabetes mellitus with hyperglycemia Refilled insulin aspart U-100 (Novolog FlexPen U-100 Insulin aspart) If BG <150 0 units If BG 150-199 8 units If BG 200-249 10 units If BG 250-299 12 units If BG >/=300 14 units 8 - 14 units (0.08 - 0.14 mL) subcut TID 30 mL 6RF Discontinued Mounjaro (tirzepatide) Discontinued Reason: Doctor's Order 10 mg (0.5 mL) subcut QWEEK 6 mL 3RF NS E11.65 - Type 2 diabetes mellitus with hyperglycemia Coding Level of Care Code Est Pt Level 4 (76668) Diagnoses Uncontrolled type 2 diabetes mellitus with hyperglycemia E11.65 Glycemic state: with hyperglycemia prison (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 Z79.4 Essential hypertension I10 Hypertension type: essential hypertension
[2025-06-06 08:32] VITALS: BP 130/80; PULSE 65; O2SAT 92; BMI 47.4
[2025-06-06 08:41] LABS: Glucose, Whole Blood 134 mg/dL (60-115)
--- OUTSIDE RECORDS SUMMARY | 2025-06-06 08:52 | XMS_ITS | Clinical Summary ---
Author Organization [address] [place] [address] Address [address] [place] [address] Phone Care Team Providers Care Chopper Gun Operator Name Role Phone Physician, Pcp Unknown [...] 05/07/2025 8:15 AM EDT Consult Orthopedic Surgery [address] [phone] Hal Mcclellan DPM Traumatic avulsion of nail [...] Upcoming Encounters Date Type Department Care Team ([facility] Contact Info) Description 07/09/2025 8:15 AM EDT Office Visit Orthopedic [place] [phone] [phone] Hal Mcclellan DPM [address] [address] Health Maintenance Due Date Last Done Comments [...] 10/05/2034 10/05/2024, 06/24/2024, 02/12/2020, Additional history exists RSV Immunization Adult Patients (1 - 1-dose 75+ series) 02/17/2048 Pneumococcal Vaccine: 50+ Years Completed 05/20/2023, 09/01/2017, [...] patient's age to complete this topic Insurance [address] [place] [address] [place]ICA[place] - [place] [facility] MEDICAID Care Teams Chopper Gun Operator Relationship Specialty Start Date End Date Physician, Pcp Unknown PCP - General 02/28/25
== END 2025-06-06 08:58 | disposition home or self-care (01) ==
LOC: HO.ENCR 08:13
PROVIDERS: PCP Internal Medicine; Visit Provider Internal Medicine
DX: E11.65 Type 2 diabetes mellitus with hyperglycemia (principal); Z79.4 Long term (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; I10 Essential (primary) hypertension

== ENCOUNTER → 2025-06-06 08:13 | Outpatient (BNVA) | payer OTHER, SELFPAY | PROVIDERS: PCP Internal Medicine; Visit Provider Internal Medicine | DX: E11.65 Type 2 diabetes mellitus with hyperglycemia (principal); E11.42 Type 2 diabetes mellitus with diabetic polyneuropathy; I10 Essential (primary) hypertension; Z83.3 Family history of diabetes mellitus; Z79.4 Long term (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 | CPT/HCPCS: 82947; 83036; 99212 ==

== ENCOUNTER 2025-06-21 11:59 | Outpatient (AMB) | payer OTHER, SELFPAY ==
--- NOTE | 2025-06-21 12:17 | MHC.AMDMED ---
Intake Intake Visit Reasons: 30 mins Code Inspector Required: No Accompanied by: Self / Same As Patient Allergies ibuprofen (From MOTRIN) Allergy (Unknown, Verified 06/06/25 08:23) RECTAL BLEED topiramate (From TOPAMAX) Allergy (Unknown, Verified 06/06/25 08:23) RECTAL BLEED DAIRY PRODUCTS Allergy (Unknown, Uncoded 06/06/25 08:23) RECTAL BLEED AND SWELLING Wellbutrin Allergy (Unknown, Uncoded 06/06/25 08:23) unknown PFSH Medical History GERD (gastroesophageal reflux disease) Schizoaffective disorder PTSD (post-traumatic stress disorder) Diabetic polyneuropathy associated with type 2 diabetes mellitus Hypertension Dyslipidemia Morbid obesity Vitamin D deficiency 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 Diabetes type 2, uncontrolled Surgical History Hx of knee surgery Hx of wisdom tooth extraction Hx of hand surgery Family History Father Cancer Mother Cancer Diabetes Social History Household Members: None Alcohol intake: former Patient Tobacco Use Status: Never used Tobacco Second Hand Smoke Exposure: Yes Assessment & Plan Assessment & Plan (1) Diabetes type 2, uncontrolled: Code(s): E11.65 - Type 2 diabetes mellitus with hyperglycemia Qualifiers: Glycemic state: with hyperglycemia Qualified Code(s): E11.65 - Type 2 diabetes mellitus with hyperglycemia Plan: Patient at visit to set up an insert Aline 3 sensor with smart phone rikki [employer] User Name:[email or web address] [email or web address] Instructed Pt on what CGM can and can't do CGM Can: Give Pt minute by minute reading of glucose levels Displays glucose trend arrows that represents the direction glucose levels are fluctuating Give insight on decisions about how to dose insulin CGM cannot: Improve glucose control on its own Completely eliminate the need for all finger sticks Make dosing decision for you Discussed action of Lantus, patient reports starting with 45 units daily, and Xigduo 01/1000 mg daily Patient is also on Mounjaro 15 mg weekly NovoLog before meals Recommended to patient to buy pre portioned snacks, to eliminate grazing and large portions Sensor placed on the back of right arm Patient left visit with sensor in warmup Reminded Pt that if symptoms do not match sensor still needs to check fingersticks. Portions of this note were created using voice recognition software, please excuse any words or phrases that may have been misinterpreted. Patient Instructions: Follow-up with chemical educator in 2 months Coding Level of Care Code Est Pt Level 1 (32499) Diagnoses Uncontrolled type 2 diabetes mellitus with hyperglycemia E11.65 Glycemic state: with hyperglycemia
== END 2025-06-21 13:01 | disposition home or self-care (01) ==
LOC: HO.ENCR 12:00
PROVIDERS: PCP Internal Medicine; Visit Provider Registered Nurse Diabetes Educator
DX: E11.65 Type 2 diabetes mellitus with hyperglycemia (principal)

== ENCOUNTER → 2025-06-21 11:59 | Outpatient (BNVA) | payer OTHER, SELFPAY | PROVIDERS: PCP Internal Medicine; Visit Provider Registered Nurse Diabetes Educator | DX: E11.65 Type 2 diabetes mellitus with hyperglycemia (principal) | CPT/HCPCS: 99211 ==

== ENCOUNTER 2025-06-27 08:31 | Outpatient (AMB) | payer OTHER, SELFPAY ==
--- NOTE | 2025-06-27 08:40 | A.OFFVIS_ITS ---
Vital Signs 06/27/25 08:48 Height 6 ft 2 in Weight 361 lb 8.929 oz BMI 46.4 BP 118/72 Blood Pressure Location Rt brachial Position Sitting Pulse 85 Pulse Source Pulse Oximeter Pulse Oximetry (%) 95 Oxygen Delivery Method Room Air Intake Visit Reasons: Mounjaro concerns/side effects Intake Note: Patient presents today for a follow-up on Type 2 Diabetes Mellitus: Mounjaro concern side effect Patient receives DME supplies through: [facility], Aline 3 Plus Last Diabetic eye exam was on: 05/01/2025, [facility]: No Diabetic Retinophaty Last Podiatry exam was on: 05/07/2025, DR. Mcclellan at [place] Most recent HbA1c: 8.0%, 06/06/2025 Random Glucose: 223 mg/dL Aquatic Biologist Required: No Accompanied by: Self / Same As Patient Allergies ibuprofen (From MOTRIN) Allergy (Unknown, Verified 06/27/25 08:49) RECTAL BLEED topiramate (From TOPAMAX) Allergy (Unknown, Verified 06/27/25 08:49) RECTAL BLEED DAIRY PRODUCTS Allergy (Unknown, Uncoded 06/27/25 08:49) RECTAL BLEED AND SWELLING Wellbutrin Allergy (Unknown, Uncoded 06/27/25 08:49) unknown HPI Comments Details: Patient is 49yo with DM type 2 diagnosed 2017 who presents for follow up diabetes Past medical history: Obesity, depression, PTSD, hypothyroidism, GERD, neuropathy Diabetes medications: Xigduo 06/1000 mg XR twice daily. Lantus 40 units at bedtime Mounjaro 15mg weekly (increased from 10mg) Novolog ss-is having trouble with the frequent injections of short acting insulin, bruising -he has been holding this Says he is doing well on the mounjaro 15mg. Has lost weight, glucose improved control but has been having constipation and overflow diarrhea He didn't tolerate Trulicity 0.75 mg weekly, and Victoza daily due to diarrhea. 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 Last ophthalmology evaluation: updated Recently saw podiatry Family hx of mother and maternal grandparents Type 2 DM ROS CONSTITUTIONAL: Denies weight loss, fever and chills. HEENT: Denies changes in vision and hearing. RESPIRATORY: Denies SOB and cough. CV: Denies palpitations and CP GI: Denies abdominal pain, nausea, vomiting and diarrhea. : Denies dysuria and urinary frequency. MSK: Denies new myalgia and joint pain. SKIN: Denies rash and pruritus. NEUROLOGICAL: Denies headache PSYCHIATRIC: Depression, frstration PHYSICAL EXAM: GENERAL: Alert and oriented x 3. NAD EYES: EOMI. Anicteric. HENT: Moist mucous membranes. No scleral icterus. No cervical lymphadenopathy. LUNGS: Clear to auscultation bilaterally. CARDIOVASCULAR: Regular rate and rhythm. No murmur. No JVD. ABDOMEN: Soft, non-tender +bs EXTREMITIES: No edema. Non-tender. SKIN: No rashes or lesions. Warm. NEUROLOGIC: No focal neurological deficits. CN II-XII grossly intact PSYCHIATRIC: Cooperative. Appropriate mood and affect [facility] Medical History GERD (gastroesophageal reflux disease) Schizoaffective disorder PTSD (post-traumatic stress disorder) Diabetic polyneuropathy associated with type 2 diabetes mellitus Hypertension Dyslipidemia Morbid obesity Vitamin D deficiency [facility] (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 Diabetes type 2, uncontrolled Surgical History Hx of knee surgery Hx of wisdom tooth extraction Hx of hand surgery Family History Father Cancer Mother Cancer Diabetes Social History Household Members: None Alcohol intake: former Patient Tobacco Use Status: Never used Tobacco Second Hand Smoke Exposure: Yes Physical Exam Vital Signs: Last Vital Signs Pulse 85 06/27/25 08:48 BP 118/72 06/27/25 08:48 Pulse Ox 95 06/27/25 08:48 Oxygen Delivery Method Room Air 06/27/25 08:48 BMI result Body Mass Index 46.4 Assessment & Plan Assessment & Plan (1) Diabetes type 2, uncontrolled: Code(s): E11.65 - Type 2 diabetes mellitus with hyperglycemia Category: Medical Qualifiers: Glycemic state: with hyperglycemia Qualified Code(s): E11.65 - Type 2 diabetes mellitus with hyperglycemia (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
[2025-06-27 08:48] VITALS: BP 118/72; PULSE 85; O2SAT 95; BMI 46.4
--- OUTSIDE RECORDS SUMMARY | 2025-06-27 08:56 | XMS_ITS | Clinical Summary ---
Author Organization [address] [place] [address] Address [address] [place] [address] Phone Care Team Providers Care Loss Prevention Leader Name Role Phone Physician, Pcp Unknown Primary Care Provider Martha vailable Allergies No known active allergies Medications tolnaftate (Tinactin) 1 % spray Apply topically 2 (two) times a day. 130 g 06/06/20 Encounters Date Type Department Care Team Description 05/07/2025 8:15 AM EDT Consult Orthopedic Surgery [facility] [address] [phone] Hal Mcclellan DPM Traumatic avulsion of nail [...] Upcoming Encounters Date Type Department Care Team ([facility] st Contact Info) Description 07/09/2025 8:15 AM EDT Office Visit Orthopedic Surgery [facility] [address] [phone] Hal Mcclellan DPM [address] [address] Health Maintenance Due Date Last Done Comments Colorectal Cancer Screening: Colonoscopy 1973 Diabetes: Annual GFR (Glomerular Filtration Rate) 1973 Diabetes: Annual Foot Exam 1983 Diabetes: Annual Retina Eye Exam 1983 Hepatitis A Vaccines (1 of 2 - Risk 2-dose series) 02/17/1992 Hepatitis B Vaccines (3 of 3 - 19+ 3-dose series) 01/11/2017 11/16/2016, 09/24/2011 Depression Screening 09/13/2024 Cholesterol Screening (Lipid Panel) 02/28/2025 Diabetes: Annual Urine Albumin-Creatinine Ratio (uACR) [...] patient's age to complete this topic Insurance R [place] [id number] MEDICAID - [place] [facility] MEDICAID Care Teams Loss Prevention Leader Relationship Specialty Start Date End Date Physician, Pcp Unknown PCP - General 02/28/25
[2025-06-27 09:03] LABS: Glucose, Whole Blood 223 mg/dL (60-115)
== END 2025-06-27 09:18 | disposition home or self-care (01) ==
LOC: HO.ENCR 08:31
PROVIDERS: PCP Internal Medicine; Visit Provider Internal Medicine
DX: E11.65 Type 2 diabetes mellitus with hyperglycemia (principal); Z79.4 Long term (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

== ENCOUNTER → 2025-06-27 08:31 | Outpatient (BNVA) | payer OTHER, SELFPAY | PROVIDERS: PCP Internal Medicine; Visit Provider Internal Medicine | DX: E11.65 Type 2 diabetes mellitus with hyperglycemia (principal); Z79.4 Long term (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; K59.00 Constipation, unspecified; R19.7 Diarrhea, unspecified; E66.01 Morbid (severe) obesity due to excess calories; Z68.42 Body mass index [BMI] 45.0-49.9, adult | CPT/HCPCS: 82947; 99212 ==

== ENCOUNTER 2025-07-19 08:30 | Outpatient (AMB) | payer OTHER, SELFPAY ==
--- NOTE | 2025-07-19 08:48 | A.OFFVIS_ITS ---
VS Expanded 07/19/25 08:50 07/19/25 08:56 Height 6 ft 2 in 6 ft 2 in Weight 357 lb 2.382 oz 357 lb BMI 45.9 45.8 Intake Visit Reasons: T2DM Allergies ibuprofen (From MOTRIN) Allergy (Unknown, Verified 06/27/25 08:49) RECTAL BLEED topiramate (From TOPAMAX) Allergy (Unknown, Verified 06/27/25 08:49) RECTAL BLEED DAIRY PRODUCTS Allergy (Unknown, Uncoded 06/27/25 08:49) RECTAL BLEED AND SWELLING Wellbutrin Allergy (Unknown, Uncoded 06/27/25 08:49) unknown Nutrition Presentation Details: Patient presents for MNT for type 2 diabetes follow-up Patient reports working on making diet changes, making meals at home following the healthy plate method He reports no longer drinking coffee and reports doing well Patient reports plans to walk at the [facility] Equation Height: 6 ft 2 in Weight: 357 lb Resting Metabolic Rate: 2541.62 Calculated Activity Level: Sedentary Calories Needed to Maintain Weight: 3049.94 [facility] Medical History GERD (gastroesophageal reflux disease) Schizoaffective disorder PTSD (post-traumatic stress disorder) Diabetic polyneuropathy associated with type 2 diabetes mellitus Hypertension Dyslipidemia Morbid obesity Vitamin D deficiency [facility] (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 Diabetes type 2, uncontrolled Surgical History Hx of knee surgery Hx of wisdom tooth extraction Hx of hand surgery Family History Father Cancer Mother Cancer Diabetes Social History Household Members: None Alcohol intake: former Patient Tobacco Use Status: Never used Tobacco Second Hand Smoke Exposure: Yes Assessment & Plan Assessment & Plan (1) Diabetes type 2, uncontrolled: Code(s): E11.65 - Type 2 diabetes mellitus with hyperglycemia Category: Medical Qualifiers: Glycemic state: with hyperglycemia Qualified Code(s): E11.65 - Type 2 diabetes mellitus with hyperglycemia Plan: Wt: 166 Kg ( 04/06 ) refused wt gain - 06/07, 162 kg (08/07) Est kcal needs as per MSJ: 3000 (40% carb, 30% protein/fat) Est fluid needs as per 25-30 ml/d: 5000 Est prot per day as per 1 g/kg bw: 160 Recommend fiber intake : 8-10 g per day and gradually increase to 25-28 g per day for women and 35-38 g for men or as tolerated Recommend sodium intake per day: less than 2300 mg Educated patient on: ( R = reviewed V = verbalizes understanding N/R = needs review N/A = not applicable * Food sources of carbohydrate, adequate serving sizes and its role in various health conditions: R * Differences between complex carbohydrates a simple carbohydrates, role of fibe r in diet: R * Lean protein sources of foods: R * Differences between types of fats and role in diet (mono on saturated fat fatty acids, saturated fatty acids, trans fats): R V N/R * Food sources of sodium in salt and healthy modifications for heart health in kidney health: R V R/V * Vitamins and minerals: R V N/R * Healthy plate method concept: R * Physical activity: Benefits a precaution: R * Hypoglycemia protocol (rule of 15): R V N/R * Dietary prevention of Hyperglycemia: R Patient Instructions: Have water with your meals Tried a higher fiber starches (quinoa, whole wheat pasta, wild rice) - reduce on the portion to no more than 2 cups cooked and follow healthy plate method Coding Level of Care Code Nutr Indiv Subseq (43403) Diagnoses Uncontrolled type 2 diabetes mellitus with hyperglycemia E11.65 Glycemic state: with hyperglycemia Time Spent (min) 20
[2025-07-19 08:50] VITALS: BMI 45.9
--- OUTSIDE RECORDS SUMMARY | 2025-07-19 08:56 | XMS_ITS | Clinical Summary ---
Author Organization [address] [place] [address] Address [address] [place] [address] Phone Care Team Providers Care Disability Specialist Name Role Phone Physician, Pcp Unknown Primary Care Provider Martha vailable Allergies No known active allergies Medications tolnaftate (Tinactin) 1 % spray Apply topically 2 (two) times a day. 130 g 08/08/20 Active Encounters Date Type Department Care Team Description 07/09/2025 8:15 AM EDT Office Visit Orthopedic [place] [phone] [phone] Hal Mcclellan DPM Controlled type 2 diabetes with neuropathy (CMS/HCC V24, CMS/HCC V28) (Primary Dx); Pain in toes of both feet; Tinea pedis of both feet; Traumatic avulsion of nail plate of toe, sequela; Dermatophytosis, nail 05/07/2025 8:15 AM EDT Consult [facility] [address] [phone] Hal Mcclellan DPM Traumatic avulsion of nail [...] Upcoming Encounters Date Type Department Care Team ([facility] Contact Info) Description 09/04/2025 8:45 AM EST Office Visit Orthopedic Surgery - [place] 250 175 [facility] [address] [place] [phone] Hal Mcclellan, DPCipriano 175 [facility] [address] [place] [address] Health Maintenance Due Date Last Done Comments Colorectal Cancer Screening: Colonoscopy 1973 Diabetes: Annual GFR (Glomerular Filtration Rate) 1973 Diabetes: Annual Foot Exam 1983 Diabetes: Annual Retina Eye Exam 1983 Hepatitis A Vaccines (1 of 2 - Risk 2-dose series) 02/17/1992 Hepatitis B Vaccines (3 of 3 - 19+ 3-dose series) 01/11/2017 11/16/2016, 09/24/2011 RSV Immunization Adult Patients (1 - Risk 50-74 years 1-dose series) 2023 Depression Screening 09/13/2024 Cholesterol Screening (Lipid Panel) 02/28/2025 Diabetes: Annual Urine Albumin-Creatinine Ratio (uACR) 02/28/2025 Diabetes: Blood Sugar Control Test (HGBA1C) 02/28/2025 HIV Screening 02/28/2025 Hepatitis C Screening 02/28/2025 Social Influencers of Health Screening 02/28/2025 Hypertension/CHF/CAD Annual BMP Blood Test 05/07/2025 DTaP,Tdap,and Td Vaccines (5 - Td or Tdap) 10/05/2034 10/05/2024, 06/24/2024, 02/12/2020, Additional history exists Pneumococcal Vaccine: 50+ Years Completed 05/20/2023, 09/01/2017, 11/16/2016 Zoster Vaccines Completed 08/20/2023, 05/24/2023 Influenza Vaccine Completed 05/08/2025, , 07/23/2023, Additional history exists COVID-19 Vaccine Completed 06/14/2025, 12/2023, 07/18/2023, Additional history exists HIB Vaccines Aged Out [...] complete this topic Insurance MEDICAID - [place] [facility] MEDICAID Care Teams Disability Specialist Relationship Specialty Start Date End Date Physician, Pcp Unknown PCP - General 02/28/25
[2025-07-24 10:48] VITALS: BMI 45.8
== END 2025-07-19 09:17 | disposition home or self-care (01) ==
LOC: HO.ENCR 08:31
PROVIDERS: PCP Internal Medicine; Visit Provider Dietitian, Registered
DX: E11.65 Type 2 diabetes mellitus with hyperglycemia (principal)

== ENCOUNTER → 2025-07-19 08:30 | Outpatient (BNVA) | payer OTHER, SELFPAY | PROVIDERS: PCP Internal Medicine; Visit Provider Dietitian, Registered | DX: E11.65 Type 2 diabetes mellitus with hyperglycemia (principal) | CPT/HCPCS: 97803 ==

== ENCOUNTER 2025-07-23 13:09 | Outpatient (AMB) | payer OTHER, SELFPAY ==
--- NOTE | 2025-07-23 13:24 | MHC.AMDMED ---
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 Accompanied by: Self / Same As Patient Allergies ibuprofen (From MOTRIN) Allergy (Unknown, Verified 06/27/25 08:49) RECTAL BLEED topiramate (From TOPAMAX) Allergy (Unknown, Verified 06/27/25 08:49) RECTAL BLEED DAIRY PRODUCTS Allergy (Unknown, Uncoded 06/27/25 08:49) RECTAL BLEED AND SWELLING Wellbutrin Allergy (Unknown, Uncoded 06/27/25 08:49) unknown PFSH Medical History GERD (gastroesophageal reflux disease) Schizoaffective disorder PTSD (post-traumatic stress disorder) Diabetic polyneuropathy associated with type 2 diabetes mellitus Hypertension Dyslipidemia Morbid obesity Vitamin D deficiency correction (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 Diabetes type 2, uncontrolled Surgical History Hx of knee surgery Hx of wisdom tooth extraction Hx of hand surgery Family History Father Cancer Mother Cancer Diabetes Social History Household Members: None Alcohol intake: former Patient Tobacco Use Status: Never used Tobacco Second Hand Smoke Exposure: Yes Assessment & Plan Assessment & Plan (1) Diabetes type 2, uncontrolled: Code(s): E11.65 - Type 2 diabetes mellitus with hyperglycemia Qualifiers: Glycemic state: with hyperglycemia Qualified Code(s): E11.65 - Type 2 diabetes mellitus with hyperglycemia Plan: Patient at visit to set up an [email or web address] Aline 3+ with reader Patient reports there is something wrong with the rikki on his phone in needs to transition back to reader CGM is the reading of glucose in the interstitial fluid not actual blood glucose, finger sticks are still necessary when Pt's symptom?s do not match sensor reading and if sensors prompts Pt to do a fingerstick Instructed patient sensors water proof you can shower, or swim do not submerge sensor in water for over 30 minutes Is sensor falls off cannot put back in you need to replace sensor, customer service number given to patient for sensor replacement Sensor placed on the back of left arm Patient left visit with sensor in warmup Reminded Pt that if symptoms do not match sensor still needs to check fingersticks. Portions of this note were created using voice recognition software, please excuse any words or phrases that may have been misinterpreted. Coding Level of Care Code Est Pt Level 1 (78520) Diagnoses Uncontrolled type 2 diabetes mellitus with hyperglycemia E11.65 Glycemic state: with hyperglycemia
--- OUTSIDE RECORDS SUMMARY | 2025-07-23 15:18 | XMS_ITS | Clinical Summary ---
Author Organization [address] [place] [address] Address [address] [place] [address] Phone Care Team Providers Care Dentist/Owner Name Role Phone Physician, Pcp Unknown Primary Care Provider Martha vailable Allergies No known active allergies Medications tolnaftate (Tinactin) 1 % spray Apply topically 2 (two) times a day. 130 g 08/08/20 Active Encounters Date Type Department Care Team Description 07/09/2025 8:15 AM EDT Office Visit Orthopedic [place] [address] [phone] Hal Mcclellan DPM Controlled type 2 diabetes with neuropathy (CMS/HCC V24, CMS/HCC V28) (Primary Dx); Pain in toes of both feet; Tinea pedis of both feet; Traumatic avulsion of nail plate of toe, sequela; Dermatophytosis, nail 05/07/2025 8:15 AM EDT Consult [facility] [address] [phone] Hal Mcclellan DPM Traumatic avulsion of nail [...] Upcoming Encounters Date Type Department Care Team ([facility] Contact Info) Description 09/04/2025 8:45 AM EST Office Visit Orthopedic Surgery - [place] 250 175 [facility] [address] [place] [phone] Hal Mcclellan, DPCipriano 175 [facility] [address] [place] [address] Health Maintenance Due Date Last Done Comments [...] complete this topic Insurance MEDICAID - [place] [facility] MEDICAID Care Teams Dentist/Owner Relationship Specialty Start Date End Date Physician, Pcp Unknown PCP - General 02/28/25
== END 2025-07-23 13:37 | disposition home or self-care (01) ==
LOC: HO.ENCR 13:09
PROVIDERS: PCP Internal Medicine; Visit Provider Registered Nurse Diabetes Educator
DX: E11.65 Type 2 diabetes mellitus with hyperglycemia (principal)

== ENCOUNTER → 2025-07-23 13:09 | Outpatient (BNVA) | payer OTHER, SELFPAY | PROVIDERS: PCP Internal Medicine; Visit Provider Registered Nurse Diabetes Educator | DX: E11.65 Type 2 diabetes mellitus with hyperglycemia (principal) | CPT/HCPCS: 99211 ==

== ENCOUNTER 2025-08-13 07:02 | Outpatient (AMB) | payer OTHER, SELFPAY ==
--- NOTE | 2025-08-13 07:25 | MHC.AMDMED ---
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 Accompanied by: Self / Same As Patient Allergies ibuprofen (From MOTRIN) Allergy (Unknown, Verified 06/27/25 08:49) RECTAL BLEED topiramate (From TOPAMAX) Allergy (Unknown, Verified 06/27/25 08:49) RECTAL BLEED DAIRY PRODUCTS Allergy (Unknown, Uncoded 06/27/25 08:49) RECTAL BLEED AND SWELLING Wellbutrin Allergy (Unknown, Uncoded 06/27/25 08:49) unknown PFSH Medical History GERD (gastroesophageal reflux disease) Schizoaffective disorder PTSD (post-traumatic stress disorder) Diabetic polyneuropathy associated with type 2 diabetes mellitus Hypertension Dyslipidemia Morbid obesity Vitamin D deficiency detention (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 Diabetes type 2, uncontrolled Surgical History Hx of knee surgery Hx of wisdom tooth extraction Hx of hand surgery Family History Father Cancer Mother Cancer Diabetes Social History Household Members: None Alcohol intake: former Patient Tobacco Use Status: Never used Tobacco Second Hand Smoke Exposure: Yes Assessment & Plan Assessment & Plan (1) Diabetes type 2, uncontrolled: Code(s): E11.65 - Type 2 diabetes mellitus with hyperglycemia Qualifiers: Glycemic state: with hyperglycemia Qualified Code(s): E11.65 - Type 2 diabetes mellitus with hyperglycemia Plan: Personal Continuous Glucose Monitor: [employer] User Name:[email or web address] [email or web address] several weeks ago 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 Last week Patient received e-mail regarding problem with Aline 3+ sensors from [employer], At today's visit we followed instructions in e-mail to check to see if patient's current sensors a had issues stated in e-mail regarding certain lot of sensors unable to detect hypoglycemia. After entering both serial numbers into [employer]'s website, sensors that patient brought to visit were unaffected reinstalled patient's Aline 3+ rikki on patient's cell phone and started new sensor Patients CGM information reviewed, Instructed patient sensors water proof you can shower, or swim do not submerge sensor in water for over 30 minutes Is sensor falls off cannot put back in you need to replace sensor, customer service number given to patient for sensor replacement Sensor placed on the back of right arm Patient left visit with sensor in warmup Reviewed how to interpret trend arrows Reminded patient that to check finger sticks if symptoms do not match sensor reading. Discussed lag time between finger stick and sensor data.? Patient able to insert sensor independently at home without issue.? Portions of this note were created using voice recognition software, please excuse any words or phrases that may have been misinterpreted. Patient Instructions: Patient instruction: CGM provides information on blood glucose control throughout the day, including hyperglycemia and hypoglycemia. ? Continue to monitor blood glucose as instructed. Follow nutrition guidelines provided. Report any discomfort promptly to health care provider. ?Stay well-hydrated. You can bathe ,shower, swim and exerce while wearing the glucose sensor. Do not submerge glucose sensor in water for more than 30 minutes. Remove sensor for MRI or CAT scan. Avoid Xray machine in airports - remove sensor or request wand Coding Level of Care Code Est Pt Level 1 (17576) Diagnoses Uncontrolled type 2 diabetes mellitus with hyperglycemia E11.65 Glycemic state: with hyperglycemia
== END 2025-08-13 09:31 | disposition home or self-care (01) ==
LOC: HO.ENCR 07:03
PROVIDERS: PCP Internal Medicine; Visit Provider Registered Nurse Diabetes Educator
DX: E11.65 Type 2 diabetes mellitus with hyperglycemia (principal)

== ENCOUNTER → 2025-08-13 07:02 | Outpatient (BNVA) | payer OTHER, SELFPAY | PROVIDERS: PCP Internal Medicine; Visit Provider Registered Nurse Diabetes Educator | DX: E11.65 Type 2 diabetes mellitus with hyperglycemia (principal); Z79.4 Long term (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 | CPT/HCPCS: 99211 ==

== ENCOUNTER 2025-09-12 08:01 | Outpatient (AMB) | payer OTHER, SELFPAY ==
--- OUTSIDE RECORDS SUMMARY | 2025-09-12 08:04 | XMS_ITS | Clinical Summary ---
Author Organization [address] [place] [address] Address [address] [place] [address] Phone Care Team Providers Care Epic Cupid Analyst Name Role Phone Physician, Pcp Unknown Primary Care Provider Martha vailable Allergies No known active allergies Medications No known medications Encounters Date Type Department Care Team Description 09/04/2025 8:45 AM EST Office Visit Orthopedic Surgery [facility] [address] [phone] Hal Mcclellan DPM Controlled type 2 diabetes with neuropathy (CMS/HCC V24, CMS/HCC V28) (Primary Dx); Pain in toes of both feet; Tinea pedis of both feet; Traumatic avulsion of nail plate of toe, sequela; Dermatophytosis, nail 07/09/2025 8:15 AM EDT Office Visit Orthopedic [facility] [address] [phone] Hal Mcclellan DPM Controlled type 2 diabetes with neuropathy (CMS/HCC V24, CMS/HCC V28) (Primary Dx); Pain in toes of both feet; Tinea pedis of both feet; Traumatic avulsion of nail plate of toe, sequela; Dermatophytosis, nail from Last 3 Months Social History Tobacco Use Types Packs/Day Years Used Date Smoking Tobacco: Never Assessed Sex and Gender Information Value Date Recorded Sex Assigned at Not on file Legal Sex Male 8:57 AM EDT Gender Identity Not on file Sexual Orientation Not on file Plan of Treatment Upcoming Encounters Date Type Department Care Team ([facility] Contact Info) Description 11/08/2025 8:30 AM EST Office Visit Orthopedic [facility] [address] [phone] Hal Mcclellan DPM [address] [address] Health Maintenance Due Date Last Done Comments [...] complete this topic Insurance MEDICAID - [place] [facility] MEDICAID Care Teams Epic Cupid Analyst Relationship Specialty Start Date End Date Physician, Pcp Unknown PCP - General 02/28/25
--- NOTE | 2025-09-12 08:12 | A.OFFVIS_ITS ---
Vital Signs 09/12/25 08:24 Height 6 ft 2 in Weight 350 lb 11.834 oz BMI 45.0 BP 118/72 Blood Pressure Location Rt brachial Position Sitting Pulse 60 Pulse Source Pulse Oximeter Pulse Oximetry (%) 95 Oxygen Delivery Method Room Air Intake Visit Reasons: T2DM Intake Note: Patient presents today for a follow-up on Type 2 Diabetes Mellitus: Last Diabetic eye exam was on: 05/01/2025, [facility]: No Diabetic Retinophaty Last Podiatry exam was on: 05/07/2025, DR. Mcclellan at [place] Most recent HbA1c: 7.6%, 09/12/2025 Random Glucose: 122 mg/dL Administration Vice President Required: No Accompanied by: Self / Same As Patient Allergies ibuprofen (From MOTRIN) Allergy (Unknown, Verified 09/12/25 08:13) RECTAL BLEED topiramate (From TOPAMAX) Allergy (Unknown, Verified 09/12/25 08:13) RECTAL BLEED DAIRY PRODUCTS Allergy (Unknown, Uncoded 09/12/25 08:13) RECTAL BLEED AND SWELLING Wellbutrin Allergy (Unknown, Uncoded 09/12/25 08:13) unknown HPI Comments Details: Patient is 50yo with DM type 2 diagnosed 2017 who presents for follow up diabetes Past medical history: Obesity, depression, PTSD, hypothyroidism, GERD, neuropathy Diabetes medications: Xigduo 06/1000 mg XR twice daily. Lantus 46 units at bedtime Mounjaro 15mg weekly Novolog ss-is having trouble with the frequent injections of short acting insulin, bruising -he uses seldomly Says he is doing well on the mounjaro 15mg. Has lost 20 lbs since May. He didn't tolerate Trulicity 0.75 mg weekly, and Victoza daily due to diarrhea. 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 Last ophthalmology evaluation: updated Recently saw podiatry Family hx of mother and maternal grandparents Type 2 DM ROS CONSTITUTIONAL: Denies weight loss, fever and chills. HEENT: Denies changes in vision and hearing. RESPIRATORY: Denies SOB and cough. CV: Denies palpitations and CP GI: Denies abdominal pain, nausea, vomiting and diarrhea. : Denies dysuria and urinary frequency. MSK: Denies new myalgia and joint pain. SKIN: Denies rash and pruritus. NEUROLOGICAL: Denies headache PSYCHIATRIC: Depression, frstration PHYSICAL EXAM: GENERAL: Alert and oriented x 3. NAD EYES: EOMI. Anicteric. HENT: Moist mucous membranes. No scleral icterus. No cervical lymphadenopathy. LUNGS: Clear to auscultation bilaterally. CARDIOVASCULAR: Regular rate and rhythm. No murmur. No JVD. ABDOMEN: Soft, non-tender +bs EXTREMITIES: No edema. Non-tender. SKIN: No rashes or lesions. Warm. NEUROLOGIC: No focal neurological deficits. CN II-XII grossly intact PSYCHIATRIC: Cooperative. 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 Diabetes type 2, uncontrolled Surgical History Hx of knee surgery Hx of wisdom tooth extraction Hx of hand surgery Family History Father Cancer Mother Cancer Diabetes Social History Household Members: None Alcohol intake: former Patient Tobacco Use Status: Never used Tobacco Second Hand Smoke Exposure: Yes Physical Exam Vital Signs: Last Vital Signs Pulse 60 09/12/25 08:24 BP 118/72 09/12/25 08:24 Pulse Ox 95 09/12/25 08:24 Oxygen Delivery Method Room Air 09/12/25 08:24 BMI result Body Mass Index 45.0 Results AMB Hemoglobin A1c AMB Hemoglobin A1c 7.6 % Last Edit by DEVIN Ng on 09/12/25 08:51 Results Reviewed Results Reviewed: Laboratory Last Values Glucose (Clinic) 122 mg/dL (60-115) H 09/12/25 08:29 Assessment & Plan Assessment & Plan (1) Diabetes type 2, uncontrolled: Code(s): E11.65 - Type 2 diabetes mellitus with hyperglycemia Category: Medical Qualifiers: Glycemic state: with hyperglycemia Qualified Code(s): E11.65 - Type 2 diabetes mellitus with hyperglycemia (2) Hypertension: Code(s): I10 - Essential (primary) hypertension Category: Medical Qualifiers: Hypertension type: essential hypertension Qualified Code(s): I10 - Essential (primary) hypertension Plan 50 year old male for diabetic follow up Doing great recently with weight loss, glucose control Was having issues with hypoglycemic a few months ago. Will hold meds at current doses Patient has good hypoglycemic awareness, follows rules of 15s for hypoglycemia Will follow up in 3 months or sooner as needed Orders: Orders AMB Hemoglobin A1c Today E11.65 - Type 2 diabetes mellitus with hyperglycemia Medications: Changed From insulin glargine 50 units (0.5 mL) subcut QPM 30 mL 6RF E11.65 - Type 2 diabetes mellitus with hyperglycemia To insulin glargine 46 units (0.46 mL) subcut QPM 30 mL 6RF E11.65 - Type 2 diabetes mellitus with hyperglycemia Coding Level of Care Code Est Pt Level 4 (19232) Diagnoses Uncontrolled type 2 diabetes mellitus with hyperglycemia E11.65 Glycemic state: with hyperglycemia Essential hypertension I10 Hypertension type: essential hypertension
[2025-09-12 08:24] VITALS: BP 118/72; PULSE 60; O2SAT 95; BMI 45.0
[2025-09-12 08:33] LABS: Glucose, Whole Blood 122 mg/dL (60-115)
== END 2025-09-12 08:53 | disposition home or self-care (01) ==
LOC: HO.ENCR 08:02
PROVIDERS: PCP Internal Medicine; Visit Provider Internal Medicine
DX: E11.65 Type 2 diabetes mellitus with hyperglycemia (principal); I10 Essential (primary) hypertension

== ENCOUNTER → 2025-09-12 08:01 | Outpatient (BNVA) | payer OTHER, SELFPAY | PROVIDERS: PCP Internal Medicine; Visit Provider Internal Medicine | DX: E11.65 Type 2 diabetes mellitus with hyperglycemia (principal); I10 Essential (primary) hypertension; Z79.4 Long term (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; Z79.84 Long term (current) use of oral hypoglycemic drugs | CPT/HCPCS: 82947; 83036; 99212 ==